=== PATIENT | female | born 1970 | race Caucasian/White ===

== ENCOUNTER → 2017-02-10 | Outpatient (CLI) | payer BC ==
[2017-02-10 17:18] LABS: CH 26.3; CHCM 31.5; HCT 43.9 % (34.0-46.0); HDW 2.61; HGB 13.5 gm/dL (11.4-16.0); Hypochromasia Slight; MCH 25.8 pg (25.0-35.0); MCHC 30.7 g/dL (31.0-37.0); MCV 83.9 fL (80.0-100.0); Mean Platelet Volume 8.2; RBC 5.23 m/uL (3.80-5.40); RDW 15.5 % (11.5-15.5); WBC 6.4 k/uL (3.8-10.6)
== END | disposition home or self-care (01) ==
LOC: LABPAT 16:53
PROVIDERS: ATTEND Otolaryngology
DX: Z01.812 Encounter for preprocedural laboratory examination (principal)
CPT/HCPCS: 36415; 85027

== ENCOUNTER 2017-11-16 14:55 | Inpatient (IN) | payer BC, MEDICARE ==
[2017-11-16] MEDS ORDERED: MORPHINE SULFATE 4 MG/ML SYRINGE IVP STA (15:08)
[2017-11-16] MEDS ORDERED: SODIUM CHLORIDE 0.9% 1,000 ML IV STA (15:08)
[2017-11-16] MEDS ORDERED: LORazepam 2 MG/ML INJ IV STA (15:08)
[2017-11-16] MEDS ORDERED: MORPHINE SULFATE 4 MG/ML SYRINGE IVP PRN (15:08)
--- NOTE | 2017-11-16 15:49 | ED ---
General Adult HPI - General Chief complaint: Seizure Stated complaint: Seizure Time Seen by Provider: 11/16/17 14:57 Source: patient, RN notes reviewed, old records reviewed Mode of arrival: wheelchair Limitations: no limitations - History of Present Illness Initial comments: This is a 47-year-old female coming in for voluntary shaking. Patient recently had ENT procedure the right side of neck prior to arrival. Patient's denies any pain no headaches. She does states she is uncontrollable tremors which started in the postop area. No recent travel history or sick contacts no fevers no medication changes - Related Data Home Medications Medication Instructions Recorded Confirmed Glimepiride [Amaryl] 4 mg PO QAM 02/10/17 11/16/17 Ibuprofen 800 mg PO TID-W/MEALS PRN 02/10/17 11/16/17 Levalbuterol Hfa Inhaler [Xopenex 2 puff INHALATION RT-QID PRN 02/10/17 11/16/17 Hfa Inhaler] Montelukast [Singulair] 10 mg PO HS 02/10/17 11/16/17 Pravastatin Sodium [Pravachol] 40 mg PO HS 02/10/17 11/16/17 Ranitidine HCl [Zantac] 150 mg PO BID 02/10/17 11/16/17 Ascorbic Acid [Vitamin C] 1,000 mg PO DAILY 11/12/17 11/16/17 Dapagliflozin Propanediol [Farxiga] 10 mg PO QAM 11/12/17 11/16/17 Gabapentin 1,200 mg PO HS 11/12/17 11/16/17 Gabapentin 600 mg PO QAM 11/12/17 11/16/17 Gabapentin [Neurontin] 300 mg PO PC-LUNCH 11/12/17 11/16/17 Insulin NPH Human Isophane 15 unit SQ AC-SUPPER 11/12/17 11/16/17 [humuLIN N] traZODone HCL [Desyrel] 100 mg PO HS 11/12/17 11/16/17 Acetaminophen with Codeine 1 tab PO TID PRN 11/16/17 11/16/17 [Tylenol w/codeine #3] DULoxetine HCL [Cymbalta] 40 mg PO DAILY 11/16/17 11/16/17 Ezetimibe [Zetia] 10 mg PO DAILY 11/16/17 11/16/17 Loratadine [Claritin] 10 mg PO DAILY 11/16/17 11/16/17 NIFEdipine [Procardia XL] 30 mg PO DAILY 11/16/17 11/16/17 Nystatin/Triamcin 1 applicate TOPICAL TID 11/16/17 11/16/17 [Nystatin-Triamcinolone Cream] Pioglitazone HCl 30 mg PO DAILY 11/16/17 11/16/17 Zinc 25 25 mg PO DAILY 11/16/17 11/16/17 metFORMIN HCL [metFORMIN HCL ER] 1,000 mg PO BID-W/MEALS 11/16/17 11/16/17 Previous Rx's Medication Instructions Recorded Magnesium Oxide 400 mg PO BID #0 11/18/17 levETIRAcetam [Keppra] 1,000 mg PO Q12HR #60 tab 11/18/17 Calcitriol [Rocaltrol] 0.5 mcg PO DAILY #30 cap 11/19/17 Allergies Allergy/AdvReac Type Severity Reaction Status Date / Time atropine [From ] Allergy Rash/Hives Verified 11/16/17 16:55 erythromycin base Allergy Nausea Verified 11/16/17 16:55 [From E-Mycin] hyoscyamine [From ] Allergy Rash/Hives Verified 11/16/17 16:55 Influenza Virus Vaccines Allergy Unknown Verified 11/16/17 16:55 Penicillins Allergy Rash/Hives Verified 11/16/17 16:55 phenobarbital [From ] Allergy Rash/Hives Verified 11/16/17 16:55 pneumococcal vaccine Allergy Unknown Verified 11/16/17 16:55 scopolamine [From ] Allergy Rash/Hives Verified 11/16/17 16:55 strawberry Allergy Anaphylaxis Verified 11/18/17 13:08 tetanus and diphtheria Allergy Unknown Verified 11/16/17 16:55 toxoids Review of Systems ROS Statement: Those systems with pertinent positive or pertinent negative responses have been documented in the HPI. ROS Other: All systems not noted in ROS Statement are negative. 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 BEING WORKED UP FOR POSSIBLE SEIZURES, LAST ONE WAS 11/08/17 , TREMORS LASTING 3-5 MINUTES History of Any Multi-Drug Resistant Organisms: None Reported Past Surgical History: Section, Orthopedic Surgery Additional Past Surgical History / Comment(s): 5 surgeries on left elbow. POST AURICULAR BENIGN MASS x 2 Past Anesthesia/Blood Transfusion Reactions: Postoperative Nausea & Vomiting ( PONV) Past Psychological History: No Psychological Hx Reported Smoking Status: Never smoker Past Alcohol Use History: None Reported Past Drug Use History: None Reported - Past Family History Mother Family Medical History: Cancer Sister(s) Family Medical History: Cancer General Exam Limitations: no limitations General appearance: alert, in no apparent distress Head exam: Present: atraumatic, normocephalic, normal inspection Eye exam: Present: normal appearance, PERRL, EOMI. Absent: scleral icterus, conjunctival injection, periorbital swelling ENT exam: Present: normal exam, mucous membranes moist Neck exam: Present: normal inspection. Absent: tenderness, meningismus, lymphadenopathy Respiratory exam: Present: normal lung sounds bilaterally. Absent: respiratory distress, wheezes, rales, rhonchi, stridor Cardiovascular Exam: Present: regular rate, normal rhythm, normal heart sounds. Absent: systolic murmur, diastolic murmur, rubs, gallop, clicks GI/Abdominal exam: Present: soft, normal bowel sounds. Absent: distended, tenderness, guarding, rebound, rigid Extremities exam: Present: normal inspection, full ROM, normal capillary refill. Absent: tenderness, pedal edema, joint swelling, calf tenderness Back exam: Present: normal inspection Neurological exam: Present: alert, oriented X3, CN II-XII intact Psychiatric exam: Present: normal affect, normal mood Skin exam: Present: warm, dry, intact, normal color. Absent: rash Course Vital Signs 11/16/17 11/16/17 11/16/17 14:58 16:36 17:13 Temperature 98.1 F 97.0 F L 98.1 F Pulse Rate 97 96 Pulse Rate [ 85 Pulse Oximetery ] Respiratory 18 17 18 Rate Blood Pressure 113/57 116/64 Blood Pressure 120/66 [Supine] O2 Sat by Pulse 97 95 98 Oximetry 11/16/17 11/16/17 18:00 19:00 Temperature 98.1 F 97.8 F Pulse Rate 75 90 Pulse Rate [ Pulse Oximetery ] Respiratory 95 H 19 Rate Blood Pressure 155/74 121/68 Blood Pressure [Supine] O2 Sat by Pulse 98 98 Oximetry EKG Findings - EKG Comments: EKG Findings:: EKG shows normal sinus rhythm rate of 96, OK 166, QRS 84, QTC 490 Medical Decision Making - Medical Decision Making 47 female the ER for evaluation patient presents ER for evaluation of postop period which she began to have seizure-like activity. Patient has hypocalcemia tetany, will not for electronically replacement - Lab Data Result diagrams: 11/17/17 06:11 11/19/17 07:42 Lab Results 11/16/17 11/16/17 11/16/17 Range/Units 15:40 15:40 15:40 WBC 4.3 (3.8-10.6) k/uL RBC 3.41 L (3.80-5.40) m/uL Hgb 9.2 L (11.4-16.0) gm/dL Hct 28.2 L (34.0-46.0) % MCV 82.7 (80.0-100.0) fL MCH 26.8 (25.0-35.0) pg MCHC 32.5 (31.0-37.0) g/dL RDW 13.9 (11.5-15.5) % Plt Count 179 (150-450) k/uL Neutrophils % 81 % Lymphocytes % 14 % Monocytes % 2 % Eosinophils % 2 % Basophils % 0 % Neutrophils # 3.5 (1.3-7.7) k/uL Lymphocytes # 0.6 L (1.0-4.8) k/uL Monocytes # 0.1 (0-1.0) k/uL Eosinophils # 0.1 (0-0.7) k/uL Basophils # 0.0 (0-0.2) k/uL Sodium 144 (137-145) mmol/L Potassium 2.2 L* (3.5-5.1) mmol/L Chloride 126 H (98-107) mmol/L Carbon Dioxide 14 L (22-30) mmol/L Anion Gap 4 mmol/L BUN 16 (7-17) mg/dL Creatinine 0.35 L (0.52-1.04) mg/dL Est GFR (CKD-EPI)AfAm >90 (>60 ml/min/1.73 sqM) Est GFR (CKD-EPI)NonAf >90 (>60 ml/min/1.73 sqM) Glucose 123 H (74-99) mg/dL Calcium 4.7 L* (8.4-10.2) mg/dL Phosphorus 2.1 L (2.5-4.5) mg/dL Magnesium 0.8 L* (1.6-2.3) mg/dL Total Bilirubin 0.1 L (0.2-1.3) mg/dL AST 17 (14-36) U/L ALT 29 (9-52) U/L Alkaline Phosphatase 31 L (38-126) U/L Total Protein 3.4 L (6.3-8.2) g/dL Albumin 1.6 L (3.5-5.0) g/dL Salicylates <1.0 mg/dL Acetaminophen <10.0 ug/mL - Radiology Data Radiology results: report reviewed (CT brain negative for acute disease), image reviewed Critical Care Time Critical Care Time: Yes Total Critical Care Time: 31 Disposition Clinical Impression: Hypocalcemia, Tetany, Hypokalemia Disposition: ADMITTED IP TO THIS [facility] Condition: Good Is patient prescribed a controlled substance at d/c from ED?: No
[2017-11-16 16:00] LABS: Basophils % (A) 0 %; Eosinophils # (A) 0.1 k/uL (0-0.7); Eosinophils % (A) 2 %; HCT 28.2 % (34.0-46.0); HGB 9.2 gm/dL (11.4-16.0); Lymphocytes # (A) 0.6 k/uL (1.0-4.8); Lymphocytes % (A) 14 %; MCH 26.8 pg (25.0-35.0); MCHC 32.5 g/dL (31.0-37.0); MCV 82.7 fL (80.0-100.0); Mean Platelet Volume 8.5; Monocytes # (A) 0.1 k/uL (0-1.0); Monocytes % (A) 2 %; Neutrophils # (A) 3.5 k/uL (1.3-7.7); Neutrophils % (A) 81 %; Platelet Count 179 k/uL (150-450); RBC 3.41 m/uL (3.80-5.40); RDW 13.9 % (11.5-15.5); WBC 4.3 k/uL (3.8-10.6)
[2017-11-16 16:09] LABS: ALT 29 U/L (9-52); AST 17 U/L (14-36); Acetaminophen <10.0 ug/mL; Albumin 1.6 g/dL (3.5-5.0); Alkaline Phosphatase 31 U/L (38-126); Anion Gap 4 mmol/L; Blood Urea Nitrogen 16 mg/dL (7-17); Carbon Dioxide 14 mmol/L (22-30); Chloride 126 mmol/L (98-107); Glucose 123 mg/dL (74-99); Salicylate <1.0 mg/dL; Sodium 144 mmol/L (137-145); Total Bilirubin 0.1 mg/dL (0.2-1.3); Total Protein 3.4 g/dL (6.3-8.2)
--- NOTE | 2017-11-16 16:11 | CT ---
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 Automated Exposure Control for Dose Reduction was Utilized. TECHNIQUE: CT scan of the head is performed without contrast. FINDINGS: There is no acute intracranial hemorrhage, mass effect, or midline shift identified. The ventricles and sulci are within normal limits in size. Calcified or ossified density along the inner table of the right temporal bone and left frontal bone suggestive of a calcified meningioma or osteo ma. Periventricular low attenuation is nonspecific. IMPRESSION: 1. No acute intracranial hemorrhage, mass effect, or midline shift is seen. 2. There are 2 nonspecific periventricular low attenuation likely in the basis of remote microvascula r ischemia. 3. Calcified or ossified densities involving the inner table of the left frontal and right temporal b ones may represent osteoma or calcified meningioma. No midline shift.
[2017-11-16 16:16] LABS: Calcium 4.7 mg/dL (8.4-10.2); Potassium 2.2 mmol/L (3.5-5.1)
[2017-11-16] MEDS ORDERED: CALCIUM GLUCONATE 1,000 MG in SODIUM CHLORIDE 0.9% 100 ML IVPB ONE (16:16)
[2017-11-16] MEDS ORDERED: POTASSIUM BICARBONATE/CIT AC 20 MEQ TABLET.EFF PO ONE (16:17)
[2017-11-16 17:16] LABS: Phosphorus 2.1 mg/dL (2.5-4.5)
[2017-11-16 17:25] LABS: Magnesium 0.8 mg/dL (1.6-2.3)
[2017-11-16] MEDS: POTASSIUM CHLORIDE 20 MEQ in WATER FOR INJECTION 1 100ML.BAG IVPB SCH ×2 (18:13→21:13)
[2017-11-16 20:28] VITALS: BMI 38.5
[2017-11-16 20:43] LABS: Glucose,Whole Blood 149 mg/dL (75-99)
[2017-11-16] MEDS ORDERED: ACET/COD 300 MG/30 MG STARTER PACK 6 TAB BTL PO PRN (21:00)
[2017-11-16] MEDS: GABAPENTIN 400 MG CAP PO SCH (22:24)
[2017-11-16] MEDS: PRAVASTATIN SODIUM 40 MG TAB PO SCH (22:25)
[2017-11-16] MEDS: DOXYCYCLINE 100 MG CAP PO SCH (22:25)
[2017-11-16] MEDS: traZODone HCL 100 MG TAB PO SCH (22:25)
[2017-11-16] MEDS: Acetaminophen-Codeine 300-30mg TAB PO PRN (22:25)
[2017-11-16 23:28] LABS: Appearance,Urine Clear (Clear); Bacteria,Urine Rare /hpf; Bilirubin,Urine Negative (Negative); Blood,Urine Negative (Negative); Color,Urine Light Yellow; Glucose,Urine (UA) 4+ (Negative); Ketones,Urine Trace (Negative); Leukocyte Esterase,Urine Moderate (Negative); Mucus,Urine Rare /hpf; Nitrite,Urine Negative (Negative); Protein,Urine Negative (Negative); RBC,Urine 1 /hpf (0-5); Specific Gravity,Urine 1.016 (1.001-1.035); Squamous Epithelial Cell,Urine 4 /hpf (0-4); Urobilinogen,Urine <2.0 mg/dL (<2.0)
[2017-11-17 00:20] LABS: Amphetamine Screen,Urine Not Detected (NotDetected); Barbiturate Screen,Urine Not Detected (NotDetected); Benzodiazepines Screen,Urine Detected (NotDetected); Cocaine Screen,Urine Not Detected (NotDetected); Methadone Screen, Urine Not Detected (NotDetected); Opiate Screen,Urine Detected (NotDetected); Oxycodone Screen, Urine Not Detected (NotDetected); Phencyclidine Screen,Urine Not Detected (NotDetected); Tricyclic Antidepressant,Urine Not Detected (NotDetected); Urn Cannabinoid Scrn Not Detected (NotDetected)
[2017-11-17] MEDS: MAGNESIUM SULFATE-D5W PMX 1 GM in DEXTROSE/WATER 1 100ML.BAG IVPB SCH ×4 (00:31→03:32)
[2017-11-17 02:16] LABS: Anion Gap 8 mmol/L; Blood Urea Nitrogen 21 mg/dL (7-17); Carbon Dioxide 22 mmol/L (22-30); Chloride 108 mmol/L (98-107); Creatine Kinase 101 U/L (30-135); Glucose 178 mg/dL (74-99); Potassium 4.3 mmol/L (3.5-5.1); Sodium 138 mmol/L (137-145)
[2017-11-17] MEDS: LORazepam 2 MG/ML INJ IV PRN ×2 (04:40→15:14)
[2017-11-17 06:18] LABS: Glucose,Whole Blood 160 mg/dL (75-99)
[2017-11-17] MEDS: metFORMIN 500 MG TAB PO SCH ×2 (06:43→16:59)
[2017-11-17 07:20] LABS: Basophils % (A) 1 %; Eosinophils # (A) 0.2 k/uL (0-0.7); Eosinophils % (A) 2 %; HCT 39.6 % (34.0-46.0); Lymphocytes # (A) 2.2 k/uL (1.0-4.8); Lymphocytes % (A) 27 %; MCH 27.2 pg (25.0-35.0); MCHC 32.9 g/dL (31.0-37.0); MCV 82.7 fL (80.0-100.0); Mean Platelet Volume 8.1; Monocytes # (A) 0.5 k/uL (0-1.0); Monocytes % (A) 7 %; Neutrophils # (A) 5.1 k/uL (1.3-7.7); Neutrophils % (A) 62 %; Platelet Count 268 k/uL (150-450); RBC 4.79 m/uL (3.80-5.40); WBC 8.2 k/uL (3.8-10.6)
[2017-11-17 07:23] LABS: Anion Gap 8 mmol/L; Blood Urea Nitrogen 19 mg/dL (7-17); Calcium 8.4 mg/dL (8.4-10.2); Carbon Dioxide 24 mmol/L (22-30); Chloride 109 mmol/L (98-107); Glucose 165 mg/dL (74-99); Magnesium 2.8 mg/dL (1.6-2.3); Potassium 4.1 mmol/L (3.5-5.1); Sodium 141 mmol/L (137-145)
[2017-11-17] MEDS: ALBUTEROL NEBULIZED 2.5 MG/3 ML INHALATION PRN ×5 (07:54→20:50)
[2017-11-17] MEDS: FARXIGA 10 MG PO SCH (08:33)
[2017-11-17] MEDS: MAGNESIUM OXIDE 400 MG TAB PO SCH ×2 (08:49→20:21)
[2017-11-17] MEDS: PIOGLITAZONE 30 MG TAB PO SCH (11:05)
[2017-11-17] MEDS: CALCITRIOL 0.25 MCG CAP PO SCH (11:06)
[2017-11-17] MEDS: DOXYCYCLINE 100 MG CAP PO SCH ×2 (11:06→20:20)
[2017-11-17] MEDS: EZETIMIBE 10 MG TAB PO SCH (11:06)
[2017-11-17] MEDS: NIFEdipine XL 30 MG TAB.ER.24 PO SCH (11:07)
[2017-11-17] MEDS: GABAPENTIN 300 MG CAP PO SCH ×2 (11:07→15:20)
[2017-11-17] MEDS: DULoxetine HCL 20 MG CAPSULE.DR PO SCH (11:08)
[2017-11-17] MEDS: Acetaminophen-Codeine 300-30mg TAB PO PRN (11:09)
[2017-11-17] MEDS: GLIMEPIRIDE 4 MG TAB PO SCH (11:09)
[2017-11-17] MEDS: ENOXAPARIN 40 MG/0.4 ML SYRINGE SQ SCH (11:36)
[2017-11-17 11:56] LABS: Glucose,Whole Blood 157 mg/dL (75-99)
[2017-11-17] MEDS: INSULIN ASPART 100 UNIT/ML 1 ML 10 ML VIAL SQ SCH ×3 (13:19→23:26)
[2017-11-17] MEDS ORDERED: levETIRAcetam IV 500 MG in SODIUM CHLORIDE 0.9% 100 ML IVPB STA (15:12)
--- NOTE | 2017-11-17 15:26 | MR ---
EXAMINATION TYPE: MR brain wo/w con DATE OF EXAM: 11/17/2017 COMPARISON: CT brain from yesterday. MRI brain from January 30, 2017 HISTORY: seizure activity. TECHNIQUE: Multiplanar, multisequence images of the brain and brainstem is performed without and with IV contras t, utilizing 9 mL intravenous Gadavist . FINDINGS: Diffusion weighted images demonstrate no evidence of a recent infarct or other diffusion ab normality. There is no extra-axial fluid collection or significant white matter signal abnormality. The ventricular system and cisternal spaces are normal in size and appearance. The brain volume is age appropriate. There is stable osteoma or ossified meningioma left frontal region on axial image 22 measuring 1.5 x 0.8 cm Midline structures demonstrate normal morphology. The craniocervical junction appears within normal limits. Post contrast images demonstrate no abnormal enhancement. The dural venous sinuses appear pa tent. The visualized sinuses are clear and the globes are intact. IMPRESSION: No significant new or acute finding identified on current study.
--- NOTE | 2017-11-17 15:27 | EEG ---
ELECTROENCEPHALOGRAM REPORT DATE OF SERVICE: 11/17/2017 REASON FOR TESTING: Seizures. CURRENT ANTIEPILEPTIC MEDICATIONS: Keppra and Neurontin. DESCRIPTION OF THE PROCEDURE: This EEG was performed using a 21 channel digital electroencephalograph, following international 10-20 system. DESCRIPTION OF THE RECORDING: From the beginning of the tracing, and with the patient's eyes closed, the background rhythm was mostly consisting of 8-9 Hz alpha frequency in the posterior occipital leads. No obvious asymmetry is seen. Occasional muscle and movement artifacts are noticed. Rare sharp wave activity is seen. During this tracing, the patient did have a clinical episode of jerking activity according to the painting technician. During that spell, no epileptic discharges were seen. Photic stimulation was performed with significant muscle artifacts seen during stimulation. At 16 hertz and 18 hertz of photic stimulation, spike and slow wave activity is seen, consistent with epileptiform discharges. The patient remains awake throughout the tracing. Her EKG lead showed a regular rate and rhythm. INTERPRETATION: This awake EEG is abnormal due to the presence of generalized epileptiform discharges, mostly seen during photic stimulation. This is consistent with seizures. Clinical correlation is recommended. MMODL / IJN: [id number] /
--- NOTE | 2017-11-17 15:33 | P.HPIM ---
History of Present Illness H&P Date: 11/17/17 Chief Complaint: tonic clonic contraction extremities This is a pleasant 47 year old pleasant lady patient of Dr correa with DM2 FMS Ehler Danlos syndrome admitted from the ER after she was noted to have tonic clonic contaction of upper and lower extremities at the recovery room with 2 episodes of toniccolonic contractions of upper extremity and lower extremity accompanied unresponsiveness, lasting approximately 6-10 minutes, patient was subsequently seen in the emergency room to evaluate this further, She has previous similar episodes for which Dr Tucker neurology has seen her as states its pseudoseizures, She saw a psychiatrist stating this is not stress induced pseudoseizures. She is scheduled to [facility] for eval no appontmentscheduled yet Emergency room severe hypocalcemia with calcium levels of 4.7,magnesium is extremely low0.8, PTH of 45.8glucose of 178all were aggressively replaced, patient has one tonic-clonic contraction of the upper extremity which was noted in the medical floor selective unit, consult were made with neurology, tetany is under the differential. She has blood workat [facility] which shows normal PTH level, calcium level at that time was 10.9. There is no new medication changes from PCP, in fact-up 5 was discontinued, and duloxetine was decreased from 60 mg to 30 mg twice a day. Patient denies any fever or chills abdominal pain, she does have abdominal pain secondary to the positioning from her seroma surgery, Dr. Boogie has performed a 3 cm neuroma removal on 2017 prior to her ER transfer. Basco were discontinued today by Dr. Boogie , MRI of the brain to be done Review of Systems Constitutional: Reports as per HPI, Denies anorexia, Denies chills, Denies chronic headaches, Denies chronic pain, Denies daytime sleepiness, Denies fatigue, Denies fever, Denies lethargy, Denies malaise, Denies night sweats, Denies poor appetite, Denies sweats, Denies weakness, Denies weight gain, Denies weight loss Ears, nose, mouth and throat: Reports as per HPI Cardiovascular: Reports as per HPI, Denies chest pain, Denies claudication, Denies decreased exercise tolerance, Denies dyspnea on exertion, Denies edema, Denies high blood pressure, Denies irregular heart beat, Denies leg edema, Denies lightheadedness, Denies orthopnea, Denies palpitations, Denies paroxysmal nocturnal dyspnea, Denies phlebitis, Denies rapid heart beat, Denies shortness of breath, Denies syncope Respiratory: Reports as per HPI Gastrointestinal: Reports as per HPI, Denies abdominal pain, Denies belching, Denies bloating, Denies BRBPR, Denies change in bowel habits, Denies coffee ground emesis, Denies constipation, Denies diarrhea, Denies dyspepsia, Denies early satiety, Denies excessive gas, Denies heartburn, Denies hematemesis, Denies hematochezia, Denies indigestion, Denies jaundice, Denies lactose intolerance, Denies loss of appetite, Denies melena, Denies nausea, Denies vomiting Genitourinary: Reports as per HPI, Denies abnormal vaginal bleeding, Denies decreased libido, Denies difficulty conceiving, Denies difficulty voiding, Denies dysmenorrhea, Denies dyspareunia, Denies dysuria, Denies flank pain, Denies genital sores, Denies hematuria, Denies hot flashes, Denies incomplete emptying, Denies kidney stones, Denies menorrhagia, Denies mixed incontinence, Denies nocturia, Denies pelvic pain, Denies post void dribbling, Denies , Denies prolapse symptoms, Denies stress incontinence, Denies urge incontinence , Denies urgency, Denies urinary frequency, Denies vaginal discharge, Denies vaginal dryness, Denies vaginal itching, Denies vaginal odor Menstruation: Reports as per HPI Musculoskeletal: Reports as per HPI, Denies arm numbness/tingling, Denies atrophy, Denies fractures, Denies frequent falls, Denies gait dysfunction, Denies hot joints, Denies leg numbness/tingling, Denies limitation of motion, Denies loss of height, Denies low back pain, Denies morning stiffness, Denies muscle cramps, Denies muscle weakness, Denies myalgias, Denies neck pain, Denies neck stiffness, Denies prior amputations, Denies redness of joints, Denies shooting arm pain, Denies shooting leg pain Integumentary: Reports as per HPI Neurological: Reports as per HPI, Reports convulsions, Reports syncope Psychiatric: Reports as per HPI Endocrine: Reports as per HPI, Denies cold intolerance, Denies deepening of the voice, Denies excessive sweating, Denies excessive thirst, Denies fatigue, Denies flushing, Denies heat intolerance, Denies high blood sugars, Denies increase in ring/shoe/hat size, Denies low blood sugars, Denies nocturia, Denies palpitations, Denies polydipsia, Denies polyphagia, Denies polyuria, Denies proptosis, Denies recent glucocorticoid use, Denies thyroid mass, Denies weight change Hematologic/Lymphatic: Reports as per HPI Allergic/Immunologic: Reports as per HPI Past Medical History Past Medical History: Asthma, Diabetes Mellitus, Fibromyalgia, Hyperlipidemia, Hypertension, Osteoarthritis (OA) Additional Past Medical History / Comment(s): Parisa-Danlos Syndrome, wears brace on left arm. BEING WORKED UP FOR POSSIBLE SEIZURES, LAST ONE WAS 11/08/17 , TREMORS LASTING 3-5 MINUTES History of Any Multi-Drug Resistant Organisms: None Reported Past Surgical History: Section, Orthopedic Surgery Additional Past Surgical History / Comment(s): 5 surgeries on left elbow. POST AURICULAR BENIGN MASS x 2 Past Anesthesia/Blood Transfusion Reactions: Postoperative Nausea & Vomiting ( PONV) Past Psychological History: No Psychological Hx Reported Smoking Status: Never smoker Past Alcohol Use History: None Reported Past Drug Use History: None Reported - Past Family History Mother Family Medical History: Cancer (small cell ca lung) Sister(s) Family Medical History: Cancer Medications and Allergies Home Medications Medication Instructions Recorded Confirmed Type Glimepiride [Amaryl] 4 mg PO QAM 02/10/17 11/16/17 History Ibuprofen 800 mg PO TID-W/MEALS PRN 02/10/17 11/16/17 History Levalbuterol Hfa Inhaler [Xopenex 2 puff INHALATION RT-QID PRN 02/10/17 History Hfa Inhaler] Montelukast [Singulair] 10 mg PO HS 02/10/17 11/16/17 History Pravastatin Sodium [Pravachol] 40 mg PO HS 02/10/17 11/16/17 History Ranitidine HCl [Zantac] 150 mg PO BID 02/10/17 11/16/17 History Ascorbic Acid [Vitamin C] 1,000 mg PO DAILY 11/12/17 11/16/17 History Dapagliflozin Propanediol [Farxiga] 10 mg PO QAM 11/12/17 11/16/17 History Gabapentin 1,200 mg PO HS 11/12/17 11/16/17 History Gabapentin 600 mg PO QAM 11/12/17 11/16/17 History Gabapentin [Neurontin] 300 mg PO PC-LUNCH 11/12/17 11/16/17 History Insulin NPH Human Isophane 15 unit SQ AC-SUPPER 11/12/17 11/16/17 History [humuLIN N] traZODone HCL [Desyrel] 100 mg PO HS 11/12/17 11/16/17 History Acetaminophen with Codeine 1 tab PO TID PRN 11/16/17 11/16/17 History [Tylenol w/codeine #3] DULoxetine HCL [Cymbalta] 40 mg PO DAILY 11/16/17 11/16/17 History Ezetimibe [Zetia] 10 mg PO DAILY 11/16/17 11/16/17 History Loratadine [Claritin] 10 mg PO DAILY 11/16/17 11/16/17 History NIFEdipine [Procardia XL] 30 mg PO DAILY 11/16/17 11/16/17 History Nystatin/Triamcin 1 applicate TOPICAL TID 11/16/17 11/16/17 History [Nystatin-Triamcinolone Cream] Pioglitazone HCl 30 mg PO DAILY 11/16/17 11/16/17 History Zinc 25 25 mg PO DAILY 11/16/17 11/16/17 History metFORMIN HCL [metFORMIN HCL ER] 1,000 mg PO BID-W/MEALS 11/16/17 11/16/17 History Magnesium Oxide 400 mg PO BID #0 11/18/17 11/16/17 Rx levETIRAcetam [Keppra] 1,000 mg PO Q12HR #60 tab 11/18/17 Rx Calcitriol [Rocaltrol] 0.5 mcg PO DAILY #30 cap 11/19/17 Rx Allergies Allergy/AdvReac Type Severity Reaction Status Date / Time atropine [From ] Allergy Rash/Hives Verified 11/16/17 16:55 erythromycin base Allergy Nausea Verified 11/16/17 16:55 [From E-Mycin] hyoscyamine [From ] Allergy Rash/Hives Verified 11/16/17 16:55 Influenza Virus Vaccines Allergy Unknown Verified 11/16/17 16:55 Penicillins Allergy Rash/Hives Verified 11/16/17 16:55 phenobarbital [From ] Allergy Rash/Hives Verified 11/16/17 16:55 pneumococcal vaccine Allergy Unknown Verified 11/16/17 16:55 scopolamine [From ] Allergy Rash/Hives Verified 11/16/17 16:55 strawberry Allergy Anaphylaxis Verified 11/18/17 13:08 tetanus and diphtheria Allergy Unknown Verified 11/16/17 16:55 toxoids Physical Exam Vitals: Vital Signs Temp Pulse Pulse Resp BP BP Pulse Ox 11/17/17 12:04 70 11/17/17 12:00 96.7 F L 93 18 120/59 97 11/17/17 11:31 95 18 11/17/17 09:00 97.0 F L 95 18 129/69 96 11/17/17 08:07 89 11/17/17 08:00 105 H 18 11/17/17 07:56 92 18 11/17/17 04:00 97.4 F L 108 H 16 138/70 96 11/17/17 00:35 93 19 133/76 95 11/17/17 00:00 97.5 F L 106 H 16 131/75 96 11/16/17 19:00 97.8 F 90 19 121/68 98 11/16/17 18:00 98.1 F 75 95 H 155/74 98 11/16/17 17:13 98.1 F 96 18 116/64 98 11/16/17 16:36 97.0 F L 85 17 120/66 95 11/16/17 14:58 98.1 F 97 18 113/57 97 Intake and Output 11/16/17 11/17/17 11/17/17 22:59 06:59 14:59 Intake Total 1590 200 Output Total 1100 Balance 490 200 Intake: IV 10 Invasive Line 1 10 Intake, IV Titration 1100 Amount Potassium Chloride 20 meq 100 In Water For Injection 1 100ml.bag @ 50 mls/hr IVPB Q2HR LIA Rx#: [id number] Sodium Chloride 0.9% 1, 1000 000 ml @ 999 mls/hr IV . Q1H1M STA Rx#:[id number] Oral 480 200 Output: Urine 1100 Other: Voiding Method Bedside Commode Bedside Commode # Voids 2 Weight 92.4 kg 92.4 kg - Constitutional General appearance: no average body habitus, cooperative, no disheveled, no mild distress, morbidly obese, no acute distress, no obese, no severe distress, no thin - EENT Eyes: no abnormal pupil, anicteric sclerae, no disc margins sharp, no edentulous , EOMI, PERRLA, no photophobia, dentition normal, no poor dentition, no ptosis, no scleral icterus, normal appearance ENT: NA/AT, normal oropharynx - Neck Neck: no lymphadenopathy, normal ROM, no other, no rigidity, no stridor, no thyromegaly - Respiratory Respiratory: bilateral: CTA, negative: diminished, dullness, rales, rhonchi, wheezing - Gastrointestinal General gastrointestinal: no absent bowel sounds, no decreased bowel sounds, no distended, no hepatomegaly, hyperactive bowel sounds, no normal bowel sounds, no organomegaly, no rigid, scaphoid, no soft, no splenomegaly, no tenderness, no umbilical hernia, no ventral hernia - Integumentary Integumentary: no calor, no cellulitis, no cyanotic, decreased turgor, no flushed, no jaundiced, normal, no normal turgor, no pale, no rash, no ulcer - Neurologic negative brudzinski and kernig's sign - Musculoskeletal Musculoskeletal: gait normal, strength equal bilaterally - Psychiatric no motory paralysis no drift no myoclonus Psychiatric: A&O x's 3, appropriate affect, intact judgment & insight Results CBC & Chem 7: 11/17/17 06:11 11/20/17 06:55 Labs: Abnormal Lab Results - Last 24 Hours (Table) 11/16/17 11/16/17 11/16/17 Range/Units 15:40 15:40 15:40 RBC 3.41 L (3.80-5.40) m/uL Hgb 9.2 L (11.4-16.0) gm/dL Hct 28.2 L (34.0-46.0) % Lymphocytes # 0.6 L (1.0-4.8) k/uL Potassium 2.2 L* (3.5-5.1) mmol/L Chloride 126 H (98-107) mmol/L Carbon Dioxide 14 L (22-30) mmol/L BUN (7-17) mg/dL Creatinine 0.35 L (0.52-1.04) mg/dL Glucose 123 H (74-99) mg/dL POC Glucose (mg/dL) (75-99) mg/dL Calcium 4.7 L* (8.4-10.2) mg/dL Phosphorus 2.1 L (2.5-4.5) mg/dL Magnesium 0.8 L* (1.6-2.3) mg/dL Total Bilirubin 0.1 L (0.2-1.3) mg/dL Alkaline Phosphatase 31 L (38-126) U/L Total Protein 3.4 L (6.3-8.2) g/dL Albumin 1.6 L (3.5-5.0) g/dL Urine Glucose (UA) (Negative) Urine Ketones (Negative) Ur Leukocyte Esterase (Negative) Urine Bacteria (None) /hpf Urine Mucus (None) /hpf Urine Opiates Screen (NotDetected) U Benzodiazepines Scrn (NotDetected) 11/16/17 11/16/17 11/17/17 Range/Units 20:41 21:15 01:21 RBC (3.80-5.40) m/uL Hgb (11.4-16.0) gm/dL Hct (34.0-46.0) % Lymphocytes # (1.0-4.8) k/uL Potassium (3.5-5.1) mmol/L Chloride 108 H (98-107) mmol/L Carbon Dioxide (22-30) mmol/L BUN 21 H (7-17) mg/dL Creatinine (0.52-1.04) mg/dL Glucose 178 H (74-99) mg/dL POC Glucose (mg/dL) 149 H (75-99) mg/dL Calcium (8.4-10.2) mg/dL Phosphorus (2.5-4.5) mg/dL Magnesium (1.6-2.3) mg/dL Total Bilirubin (0.2-1.3) mg/dL Alkaline Phosphatase (38-126) U/L Total Protein (6.3-8.2) g/dL Albumin (3.5-5.0) g/dL Urine Glucose (UA) 4+ H (Negative) Urine Ketones Trace H (Negative) Ur Leukocyte Esterase Moderate H (Negative) Urine Bacteria Rare H (None) /hpf Urine Mucus Rare H (None) /hpf Urine Opiates Screen Detected H (NotDetected) U Benzodiazepines Scrn Detected H (NotDetected) 11/17/17 11/17/17 11/17/17 Range/Units 06:11 06:17 11:50 RBC (3.80-5.40) m/uL Hgb (11.4-16.0) gm/dL Hct (34.0-46.0) % Lymphocytes # (1.0-4.8) k/uL Potassium (3.5-5.1) mmol/L Chloride 109 H (98-107) mmol/L Carbon Dioxide (22-30) mmol/L BUN 19 H (7-17) mg/dL Creatinine (0.52-1.04) mg/dL Glucose 165 H (74-99) mg/dL POC Glucose (mg/dL) 160 H 157 H (75-99) mg/dL Calcium (8.4-10.2) mg/dL Phosphorus (2.5-4.5) mg/dL Magnesium 2.8 H (1.6-2.3) mg/dL Total Bilirubin (0.2-1.3) mg/dL Alkaline Phosphatase (38-126) U/L Total Protein (6.3-8.2) g/dL Albumin (3.5-5.0) g/dL Urine Glucose (UA) (Negative) Urine Ketones (Negative) Ur Leukocyte Esterase (Negative) Urine Bacteria (None) /hpf Urine Mucus (None) /hpf Urine Opiates Screen (NotDetected) U Benzodiazepines Scrn (NotDetected) Laboratory Results WBC 8.2 k/uL (3.8-10.6) 11/17/17 06:11 RBC 4.79 m/uL (3.80-5.40) 11/17/17 06:11 Hgb 13.0 gm/dL (11.4-16.0) D 11/17/17 06:11 Hct 39.6 % (34.0-46.0) 11/17/17 06:11 MCV 82.7 fL (80.0-100.0) 11/17/17 06:11 MCH 27.2 pg (25.0-35.0) 11/17/17 06:11 MCHC 32.9 g/dL (31.0-37.0) 11/17/17 06:11 RDW 14.0 % (11.5-15.5) 11/17/17 06:11 Plt Count 268 k/uL (150-450) 11/17/17 06:11 Neutrophils % 62 % 11/17/17 06:11 Lymphocytes % 27 % 11/17/17 06:11 Monocytes % 7 % 11/17/17 06:11 Eosinophils % 2 % 11/17/17 06:11 Basophils % 1 % 11/17/17 06:11 Neutrophils # 5.1 k/uL (1.3-7.7) 11/17/17 06:11 Lymphocytes # 2.2 k/uL (1.0-4.8) 11/17/17 06:11 Monocytes # 0.5 k/uL (0-1.0) 11/17/17 06:11 Eosinophils # 0.2 k/uL (0-0.7) 11/17/17 06:11 Basophils # 0.0 k/uL (0-0.2) 11/17/17 06:11 Sodium 141 mmol/L (137-145) 11/17/17 06:11 Potassium 4.1 mmol/L (3.5-5.1) 11/17/17 06:11 Chloride 109 mmol/L (98-107) H 11/17/17 06:11 Carbon Dioxide 24 mmol/L (22-30) 11/17/17 06:11 Anion Gap 8 mmol/L 11/17/17 06:11 BUN 19 mg/dL (7-17) H 11/17/17 06:11 Creatinine 0.64 mg/dL (0.52-1.04) 11/17/17 06:11 Est GFR (CKD-EPI)AfAm >90 (>60 ml/min/1.73 sqM) 11/17/17 06:11 Est GFR (CKD-EPI)NonAf >90 (>60 ml/min/1.73 sqM) 11/17/17 06:11 Glucose 165 mg/dL (74-99) H 11/17/17 06:11 POC Glucose (mg/dL) 157 mg/dL (75-99) H 11/17/17 11:50 POC Glu Lathe Tender ID Yakelin Delarosa 11/17/17 11:50 Calcium 8.4 mg/dL (8.4-10.2) 11/17/17 06:11 Ionized Calcium Caren 5.0 mg/dL (4.5-5.3) 11/17/17 01:21 Phosphorus 2.1 mg/dL (2.5-4.5) L 11/16/17 15:40 Magnesium 2.8 mg/dL (1.6-2.3) H 11/17/17 06:11 Total Bilirubin 0.1 mg/dL (0.2-1.3) L 11/16/17 15:40 AST 17 U/L (14-36) 11/16/17 15:40 ALT 29 U/L (9-52) 11/16/17 15:40 Alkaline Phosphatase 31 U/L (38-126) L 11/16/17 15:40 Creatine Kinase 101 U/L (30-135) 11/17/17 01:21 Total Protein 3.4 g/dL (6.3-8.2) L 11/16/17 15:40 Albumin 1.6 g/dL (3.5-5.0) L 11/16/17 15:40 TSH 0.707 mIU/L (0.465-4.680) 11/17/17 06:11 Prolactin 3.7 ng/mL (2.8-29.2) 11/17/17 01:21 PTH Intact 45.8 pg/mL (14.0-72.0) 11/17/17 01:21 Urine Color Light Yellow 11/16/17 21:15 Urine Appearance Clear (Clear) 11/16/17 21:15 Urine pH 8.0 (5.0-8.0) 11/16/17 21:15 Ur Specific [place] 1.016 (1.001-1.035) 11/16/17 21:15 Urine Protein Negative (Negative) 11/16/17 21:15 Urine Glucose (UA) 4+ (Negative) H 11/16/17 21:15 Urine Ketones Trace (Negative) H 11/16/17 21:15 Urine Blood Negative (Negative) 11/16/17 21:15 Urine Nitrite Negative (Negative) 11/16/17 21:15 Urine Bilirubin Negative (Negative) 11/16/17 21:15 Urine Urobilinogen <2.0 mg/dL (<2.0) 11/16/17 21:15 Ur Leukocyte Esterase Moderate (Negative) H 11/16/17 21:15 Urine RBC 1 /hpf (0-5) 11/16/17 21:15 Ur Squamous Epith Cells 4 /hpf (0-4) 11/16/17 21:15 Urine Bacteria Rare /hpf (None) H 11/16/17 21:15 Urine Mucus Rare /hpf (None) H 11/16/17 21:15 Salicylates <1.0 mg/dL 11/16/17 15:40 Urine Opiates Screen Detected (NotDetected) H 11/16/17 21:15 Ur Oxycodone Screen Not Detected (NotDetected) 11/16/17 21:15 Urine Methadone Screen Not Detected (NotDetected) 11/16/17 21:15 Ur Propoxyphene Screen Not Detected (NotDetected) 11/16/17 21:15 Acetaminophen <10.0 ug/mL 11/16/17 15:40 Ur Barbiturates Screen Not Detected (NotDetected) 11/16/17 21:15 U Tricyclic Antidepress Not Detected (NotDetected) 11/16/17 21:15 Ur Phencyclidine Scrn Not Detected (NotDetected) 11/16/17 21:15 Ur Amphetamines Screen Not Detected (NotDetected) 11/16/17 21:15 U Methamphetamines Scrn Not Detected (NotDetected) 11/16/17 21:15 U Benzodiazepines Scrn Detected (NotDetected) H 11/16/17 21:15 Urine Cocaine Screen Not Detected (NotDetected) 11/16/17 21:15 U Marijuana (THC) Screen Not Detected (NotDetected) 11/16/17 21:15 Thrombosis Risk Factor Assmnt - DVT/VTE Prophylaxis DVT/VTE Prophylaxis: Mechanical Prophylaxis ordered - Choose All That Apply Any of the Below Risk Factors Present?: Yes Each Factor Represents 1 point: Age 41-60 years, Obesity (BMI >25) Other Risk Factors: No Other congenital or acquired thrombophilia - If yes, enter type in comment: No Thrombosis Risk Factor Assessment Total Risk Factor Score: 2 Thrombosis Risk Factor Assessment Level: Low Risk Assessment and Plan Plan: 1. Tonic-clonic contractions, suspected pseudoseizures, possibly from severe hypo-calciumia and hypomagnesemia.ruled out primary hypoparathyroidism. it is currently replaced, EKG fails to reveal any QT prolongation or any abnormalities except for possibility of lateral infarct, and inferior infarct.she was seen by Dr. Tucker in the past, pseudoseizures are considered, patient also was evaluated by psychiatry which was negative for any stress- induced pseudoseizures, however she has an appointment at [facility] Dr delores Posey, forthcoming appointment not scheduled. neurology is to see the patient, patient currently is on Keppra, she would need endocrinology evaluation post discharge from the hospital, etiology of the hypokalemia and hypomagnesemia is not determined as the patient is not on any any restricted diet.her labs 2-3 weeks ago for calcium and PTH level were acceptable, she does have a 10.9 calcium 3 weeks ago.continue on magnesium oxide 400 twice a day status post 2 g replacement 3 doses IV, start on Rocaltrol 0.5 mcgdaily. Discontinue vitamin D3 supplementation. Electrolytes to be monitored daily. seizure prophylaxis. 2 diabetes mellitus type 2on glimepiridemetformin NPH 15 units every dinner 3 Fibromyalgia with chronic pain on gabapentin, duloxetine 40 mg daily a day, 4 Hyperlipidemiaon Zetia 5 status post neuroma excision right side of the scalp, status post staple removal for an MRI imaging studies, surgical wound has been glued surgery performed 11/16/2017on prophylaxis doxycycline per recommendation 6. severe hypocalcemia , poss acute periodic hypocalcemi, no ongoing losses. ruled out primary hypoparathyroidism, replacment made for aggressive scorrection secondary to neurologic consequence of severe hypo. 7. severe hypomagnesemia, etiology unknown, replacment placed IV series of 2. 8. dvt and gi prophlaxis .
[2017-11-17 16:49] LABS: Glucose,Whole Blood 164 mg/dL (75-99)
[2017-11-17] MEDS: INSULIN NPH 300 UNIT/3 ML VIAL SQ SCH (16:56)
[2017-11-17] MEDS: levETIRAcetam IV 1,000 MG in SALINE 1 100ML.BAG IVPB SCH (20:12)
[2017-11-17] MEDS: GABAPENTIN 400 MG CAP PO SCH (20:20)
[2017-11-17] MEDS: PRAVASTATIN SODIUM 40 MG TAB PO SCH (20:21)
[2017-11-17] MEDS: traZODone HCL 100 MG TAB PO SCH (20:21)
[2017-11-17 20:58] LABS: Glucose,Whole Blood 161 mg/dL (75-99)
[2017-11-17 21:44] LABS: Hemoglobin A1C 8.4 % (4.0-6.0)
--- NOTE | 2017-11-17 22:59 | CONS ---
CONSULTATION DATE OF CONSULTATION: 11/17/2017 CHIEF COMPLAINT: Seizures. HISTORY OF PRESENT ILLNESS: Mrs. Villanueva is a pleasant 47-year-old female who is being evaluated by the neurology service per the request of Dr. Moreno for seizures. The patient had outpatient surgery done by Dr. Apolinar Cifuentes yesterday. She did tolerate the surgery well, but while she was in recovery room she had a witnessed seizure which was described as a generalized tonic-colonic seizure lasting approximately 1 minute and followed by approximately 10 minutes of postictal drowsiness. The patient had a second seizure and she was then transferred to the emergency room, where she was then admitted for further workup and management. When I was consulted, I did start the patient on Keppra 750 mg b.i.d. An EEG was done and I reviewed the study, which did show epileptic activity during photic stimulation. I did increase her Keppra to 1000 mg b.i.d. At the time of my evaluation, the patient is sitting up in her bed and appears to be in no acute distress. She has not had any further seizure-like activity since her Keppra was increased. She informs me that she has had these episodes in the past. She started having seizure-like activity in April of this year and she states that she was seen by a local neurologist who told her that these are pseudoseizures and did not start any antiepileptic medications. According to the patient, she was referred to a psychiatrist for the presumed history of pseudoseizures, and her psychiatrist told her that she was having real seizures and not pseudoseizures. I ordered an MRI of the brain with and without contrast which showed no acute intracranial abnormalities, but there was evidence of a 1.5 x 0.8 cm meningioma in the left frontal region. Her CBC was normal. Her basic metabolic profile was normal except for hyperglycemia at 165. Her magnesium level was slightly elevated at 2.8. Her CPK and TSH were normal. A urine drug screen was done which was positive for opiates and benzodiazepine. She denies any headache or lateralizing numbness or weakness. PAST MEDICAL HISTORY: 1. Seizures. 2. Asthma. 3. Diabetes. 4. Fibromyalgia. 5. Dyslipidemia. 6. Hypertension. 7. Arthritis. 8. Ehler-Danlos syndrome. 9. History of . 10.Orthopedic surgeries. SOCIAL HISTORY: She denies any tobacco, alcohol or drug use. FAMILY HISTORY: Positive for cancer. HOME MEDICATIONS: Reviewed in the chart. ALLERGIES: MULTIPLE ALLERGIES reviewed in the chart. REVIEW OF SYSTEMS: CONSTITUTIONAL: Positive for fatigue. EYES: Negative. ENT: Positive for chronic diminished hearing. CARDIOVASCULAR: Negative. RESPIRATORY: Positive for occasional shortness of breath. NEUROLOGICAL: As mentioned above. GASTROINTESTINAL: Positive for occasional heartburn. GENITOURINARY: Negative. PSYCHIATRIC: Negative. ENDOCRINE: Positive for diabetes. MUSCULOSKELETAL: Positive for frequent joint pain and muscle pain. DERMATOLOGICAL: Negative. PHYSICAL EXAMINATION: Vital signs show a temperature of 97.0, pulse 74, respiration 16, blood pressure 119/64. GENERAL APPEARANCE: The patient is a well-developed female who appears to be in no acute distress. HEENT: Normocephalic, atraumatic. No facial asymmetry is seen. NECK: Supple with no masses felt. CARDIOVASCULAR: Regular rate and rhythm. ABDOMEN: Nontender, nondistended. Extremities showed no edema or clubbing. NEUROLOGICAL EXAM: The patient is awake and oriented x3. Speech and language are normal. Strength is full in all 4 extremities. Sensory exam was normal to light touch in all 4 extremities. No facial asymmetry is seen on cranial nerve testing. No tremors or seizure-like activity is seen. IMPRESSION: 1. Generalized tonic-clonic seizures. 2. Meningioma. RECOMMENDATION: The patient has had several seizure-like activities consistent with generalized tonic- clonic seizures with postictal confusion. As mentioned above, her EEG did show epileptic activity mainly with photic stimulation. I will keep her on Keppra 1000 mg b.i.d. A repeat EEG will be done in the morning. The patient was told that she is not to drive or operate any heavy machinery for a period of 6 months. As for her meningioma, I do not believe this is provoking any seizures, as it is small, as mentioned above. I do recommend annual MRIs. Continue neuro checks and seizure precautions. I will continue to follow with you. Further recommendations to follow. Thank you for allowing me to participate in the care of your patient. If you have any questions, please feel free to contact me. MMJACKELYN / ALONDRAN: [id number] /
[2017-11-18 05:55] LABS: Glucose,Whole Blood 138 mg/dL (75-99)
[2017-11-18 06:40] LABS: Anion Gap 6 mmol/L; Blood Urea Nitrogen 22 mg/dL (7-17); Calcium 9.3 mg/dL (8.4-10.2); Carbon Dioxide 25 mmol/L (22-30); Chloride 109 mmol/L (98-107); Glucose 133 mg/dL (74-99); Magnesium 1.9 mg/dL (1.6-2.3); Potassium 4.2 mmol/L (3.5-5.1); Sodium 140 mmol/L (137-145)
[2017-11-18] MEDS: metFORMIN 500 MG TAB PO SCH ×2 (06:46→17:54)
[2017-11-18] MEDS: INSULIN ASPART 100 UNIT/ML 1 ML 10 ML VIAL SQ SCH ×4 (06:46→20:00)
[2017-11-18] MEDS: levETIRAcetam IV 1,000 MG in SALINE 1 100ML.BAG IVPB SCH (07:34)
[2017-11-18] MEDS: ALBUTEROL NEBULIZED 2.5 MG/3 ML INHALATION PRN ×4 (07:54→20:10)
[2017-11-18] MEDS: LORazepam 2 MG/ML INJ IV PRN ×2 (08:20→11:56)
[2017-11-18] MEDS: ENOXAPARIN 40 MG/0.4 ML SYRINGE SQ SCH (08:20)
[2017-11-18] MEDS: DOXYCYCLINE 100 MG CAP PO SCH ×2 (08:21→20:00)
[2017-11-18] MEDS: CALCITRIOL 0.25 MCG CAP PO SCH (08:21)
[2017-11-18] MEDS: DULoxetine HCL 20 MG CAPSULE.DR PO SCH (08:21)
[2017-11-18] MEDS: GLIMEPIRIDE 4 MG TAB PO SCH (08:22)
[2017-11-18] MEDS: GABAPENTIN 300 MG CAP PO SCH ×2 (08:22→13:34)
[2017-11-18] MEDS: EZETIMIBE 10 MG TAB PO SCH (08:23)
[2017-11-18] MEDS: PIOGLITAZONE 30 MG TAB PO SCH (08:23)
[2017-11-18] MEDS: Acetaminophen-Codeine 300-30mg TAB PO PRN ×2 (08:40→17:57)
[2017-11-18] MEDS: MAGNESIUM OXIDE 400 MG TAB PO SCH ×2 (08:43→20:00)
[2017-11-18] MEDS: NIFEdipine XL 30 MG TAB.ER.24 PO SCH (08:44)
[2017-11-18 12:36] LABS: Glucose,Whole Blood 105 mg/dL (75-99)
[2017-11-18] MEDS: FARXIGA 10 MG PO SCH (13:31)
--- NOTE | 2017-11-18 14:12 | P.PN ---
Subjective Progress Note Date: 11/18/17 This is a pleasant 47 year old pleasant lady patient of Dr correa with DM2 FMS Ehler Danlos syndrome admitted from the ER after she was noted to have tonic clonic contaction of upper and lower extremities at the recovery room with 2 episodes of toniccolonic contractions of upper extremity and lower extremity accompanied unresponsiveness, lasting approximately 6-10 minutes, patient was subsequently seen in the emergency room to evaluate this further, She has previous similar episodes for which Dr Tucker neurology has seen her as states its pseudoseizures, She saw a psychiatrist stating this is not stress induced pseudoseizures. [facility] no appontmentscheduled yet Emergency room severe hypocalcemia with calcium levels of 4.7,magnesium is extremely low0.8, PTH of 45.8glucose of 178all were aggressively replaced, patient has one tonic-clonic contraction of the upper extremity which was noted in the medical floor selective unit, consult were made with neurology, tetany is under the differential. She has blood workat [facility] which shows normal PTH level, calcium level at that time was 10.9. There is no new medication changes from PCP, in fact-up 5 was discontinued, and duloxetine was decreased from 60 mg to 30 mg twice a day. Patient denies any fever or chills abdominal pain, she does have abdominal pain secondary to the positioning from her seroma surgery, Dr. Boogie has performed a 3 cm neuroma removal on 2017 prior to her ER transfer. [place] were discontinued today by Dr. Boogie , MRI of the brain to be done 11/18: Patient is seen and followed by Dr. Iyer. EEG did show epileptic activity mainly in the photic stimulation and he recommends continuing Keppra at 1000 mg twice daily. A repeat EEG is being done today. Patient has been instructed by neurology of no driving or operating heavy machinery for [address] Iyer does not believe meningioma is provoking any seizures and does recommend annual MRIs. Patient voices that she would like to follow-up with Dr. Iyer as an outpatient. MRI of the brain shows no significant new or acute findings identified. 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 Patient will be monitored overnight and plan for discharge tomorrow. Repeat magnesium and calcium are normal. Telemetry will be discontinued. Keppra will be changed over to oral and Keppra level to be checked in the morning. Objective - Vital Signs Vital signs: Vital Signs Temp 97.1 F L 11/18/17 04:00 Pulse 76 11/18/17 08:14 Resp 15 11/18/17 04:00 BP 123/71 11/18/17 04:00 Pulse Ox 98 11/18/17 07:55 Intake & Output 11/17/17 11/18/17 11/18/17 18:59 06:59 18:59 Intake Total 536 30 Output Total 2800 Balance 536 -2770 Weight 93.4 kg Intake: IV 30 Invasive Line 2 30 Intake, IV Titration 100 Amount levETIRAcetam IV 500 mg 100 In Sodium Chloride 0.9% 100 ml @ 400 mls/hr IVPB ONCE STA Rx#:[id number] Oral 436 Output: Urine 2800 Other: Voiding Method Bedside Commode Bedside Commode # Voids 1 1 - Exam - Constitutional General appearance: cooperative, no acute distress - EENT Eyes: anicteric sclerae, EOMI, dentition normal, normal appearance ENT: NA/AT, normal oropharynx - Neck Neck: normal ROM - Respiratory Respiratory: bilateral: CTA, negative: diminished, dullness, rales, rhonchi, wheezing - Labs CBC & Chem 7: 11/17/17 06:11 11/18/17 05:56 Labs: Abnormal Lab Results - Last 24 Hours (Table) 11/17/17 11/17/17 11/17/17 Range/Units 06:11 11:50 16:43 Chloride (98-107) mmol/L BUN (7-17) mg/dL Glucose (74-99) mg/dL POC Glucose (mg/dL) 157 H 164 H (75-99) mg/dL Hemoglobin A1c 8.4 H (4.0-6.0) % 11/17/17 11/18/17 11/18/17 Range/Units 20:56 05:54 05:56 Chloride 109 H (98-107) mmol/L BUN 22 H (7-17) mg/dL Glucose 133 H (74-99) mg/dL POC Glucose (mg/dL) 161 H 138 H (75-99) mg/dL Hemoglobin A1c (4.0-6.0) % Assessment and Plan Plan: 1. Tonic-clonic seizures, grand mal seizures exacerbated by severe hypocalcemia and hypomagnesemia. Ruled out primary hypoparathyroidism. Discontinue vitamin D3 supplementation. Electrolytes to be monitored daily. Consult with Dr. Shireen samson. MRI and EEG report as above. Patient started on Keppra which will be switched over to oral in a couple level will be checked in the morning. 2. Diabetes mellitus type 2. Continue metformin 1000 mg twice daily, Actos 30 mg daily, NPH 15 units with supper, NovoLog scale. 3. Fibromyalgia with chronic pain on gabapentin, duloxetine 40 mg daily a day, 4. Hyperlipidemiaon Zetia 5. Status post neuroma excision right side of the scalp, status post staple removal for an MRI imaging studies, surgical wound has been glued surgery performed 11/16/2017on prophylaxis doxycycline per recommendation Discharge plan: Return home tomorow Impression and plan of care have been directed as dictated by the signing physician. Nela Cobian nurse practitioner acting as scribe for signing physician.
[2017-11-18 16:39] LABS: Glucose,Whole Blood 134 mg/dL (75-99)
--- NOTE | 2017-11-18 18:39 | EEG ---
ELECTROENCEPHALOGRAM REPORT DATE OF SERVICE: 11/18/2017 REASON FOR TESTING: Seizures. CURRENT ANTIEPILEPTIC MEDICATIONS: Keppra. DESCRIPTION OF THE PROCEDURE: This EEG was performed using a 21-channel digital electroencephalograph, following international 10-20 system. DESCRIPTION OF THE RECORDING: From the beginning of the tracing, and with the patient's eyes closed, the background rhythm was mostly consisting of 9 Hz alpha frequency in the posterior occipital leads. No obvious asymmetry is seen. Occasional movement and muscle artifacts are seen. A short run of spike and slow wave activity is seen in the left temporal lead without any generalization. Photic stimulation was performed with no driving response seen. No pathological waves were elicited this time. Hyperventilation was not performed. The patient remains awake throughout the tracing. Her EKG lead showed a regular rate and rhythm. INTERPRETATION: This awake EEG is abnormal due to the presence of a short run of sharp and slow wave activity, mainly in the left temporal region, without any generalization seen. Overall, this EEG is improved when compared to her 11/17/2017 EEG. Clinical correlation is recommended. EILEEN / BARBARA: [id number] /
[2017-11-18 19:48] LABS: Glucose,Whole Blood 186 mg/dL (75-99)
[2017-11-18] MEDS: levETIRAcetam 500 MG TAB PO SCH (20:00)
[2017-11-18] MEDS: PRAVASTATIN SODIUM 40 MG TAB PO SCH (20:00)
[2017-11-18] MEDS: INSULIN NPH 300 UNIT/3 ML VIAL SQ SCH (20:01)
[2017-11-18] MEDS: traZODone HCL 100 MG TAB PO SCH (20:32)
[2017-11-18] MEDS: GABAPENTIN 400 MG CAP PO SCH (20:32)
--- NOTE | 2017-11-18 22:04 | P.PN ---
Subjective Progress Note Date: 11/18/17 Principal diagnosis: Seizure Neurology is following a 47-year-old female for seizure. Patient had outpatient surgery and was in recovery and had a witnessed seizure that was described as generalized tonic-clonic seizure lasting approximately 1 minute followed by approximately 10 minutes of postictal drowsiness. Patient had a second seizure and was transferred to the emergency room where she was admitted for further workup and management. Patient was then taken for EEG and had another seizure during the EEG. Patient at that point was already on Keppra 750 mg twice a day. EEG was noted to show epileptic activity during photic stimulation. Keppra was increased to a thousand milligrams twice a day. Patient has not had any further seizure activity since the increased dose of Keppra. 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 Psychiatrist did not agree with previous neurologists diagnosis and recommended she seek second opinion. Patient did have MRI ordered since being admitted which showed no acute intracranial abnormality but there was evidence of a 1.5 x 0.8 cm meningioma in the left frontal region. Patient did have a second EEG this evening and was noted to have some improvement with her seizure activity which was noted in the left temporal region. On contact, patient was resting in bed, no acute distress, family and the room. Discussed with patient in the presence of family that under [place] law, patient cannot operate a motor vehicle for 6 months from the date of last seizure recurrence. Patient and family expressed understanding. Objective - Vital Signs Vital signs: Vital Signs Temp 98.2 F 11/18/17 14:18 Pulse 82 11/18/17 20:19 Resp 16 11/18/17 20:19 BP 127/79 11/18/17 14:18 Pulse Ox 95 11/18/17 14:18 Intake & Output 11/18/17 11/18/17 11/19/17 06:59 18:59 06:59 Intake Total 30 Output Total 2800 Balance -2770 Weight 93.4 kg Intake: IV 30 Invasive Line 2 30 Output: Urine 2800 Other: Voiding Method Bedside Commode # Voids 1 2 - Exam General appearance: Alert & oriented x3, no apparent distress. Head: Atraumatic, normocephalic, normal inspection Eyes: Well appearance, PERRLA, EOMI. Absent scleral icterus, conjunctival injection, nystagmus, periorbital swelling. Ear, nose and throat: Normal exam, mucous membranes moist Neck: Normal inspection, absent tenderness, lymphadenopathy. Respiratory: No increased work of breathing Cardiovascular: Regular rate, rhythm GI/abdominal: No guarding Extremities: Full range of motion, normal capillary refill, no tenderness, pedal edema joint swelling, calf tenderness. Neurological: cranial nerves II through XII intact no lateralizing weakness no seizure activity noted on physical exam no pronator drift and no nystagmus. Left lower extremity: 5/5 Right lower extremity: 5/5 Left upper extremity: 5/5 Right upper extremity:5 /5 Sensation: Left lower extremity: normal Right lower extremity: normal Left upper extremity: normal Right upper extremity:normal Psychological: Mood and Affect appropriate for setting - Labs CBC & Chem 7: 11/17/17 06:11 11/18/17 05:56 Labs: Abnormal Lab Results - Last 24 Hours (Table) 11/18/17 11/18/17 11/18/17 Range/Units 05:54 05:56 12:35 Chloride 109 H (98-107) mmol/L BUN 22 H (7-17) mg/dL Glucose 133 H (74-99) mg/dL POC Glucose (mg/dL) 138 H 105 H (75-99) mg/dL 11/18/17 11/18/17 Range/Units 16:38 19:46 Chloride (98-107) mmol/L BUN (7-17) mg/dL Glucose (74-99) mg/dL POC Glucose (mg/dL) 134 H 186 H (75-99) mg/dL Assessment and Plan (1) Seizure Current Visit: Yes Status: Acute Code(s): R56.9 - UNSPECIFIED CONVULSIONS SNOMED Code(s): 66901430 (2) Meningioma Current Visit: Yes Status: Acute Code(s): D32.9 - BENIGN NEOPLASM OF MENINGES, UNSPECIFIED SNOMED Code(s): 528919486 Plan: continue seizure precautions Continue Keppra at existing dose and frequency 1000 mg twice a day continue neuro checks every shift or as previously implemented Status: Neurology will continue to follow and provide updates as needed or warranted. I have discussed the plan of care with the physician prior to implementation and he agrees with the plan as implemented.
[2017-11-19 07:01] LABS: Glucose,Whole Blood 83 mg/dL (75-99)
[2017-11-19] MEDS: INSULIN ASPART 100 UNIT/ML 1 ML 10 ML VIAL SQ SCH ×4 (07:28→21:48)
[2017-11-19] MEDS: ALBUTEROL NEBULIZED 2.5 MG/3 ML INHALATION PRN ×3 (07:32→20:07)
[2017-11-19] MEDS: FARXIGA 10 MG PO SCH (08:32)
[2017-11-19 08:38] LABS: ALT 44 U/L (9-52); AST 38 U/L (14-36); Albumin 3.8 g/dL (3.5-5.0); Alkaline Phosphatase 48 U/L (38-126); Anion Gap 9 mmol/L; Blood Urea Nitrogen 17 mg/dL (7-17); Calcium 9.8 mg/dL (8.4-10.2); Carbon Dioxide 23 mmol/L (22-30); Chloride 109 mmol/L (98-107); Glucose 81 mg/dL (74-99); Magnesium 1.7 mg/dL (1.6-2.3); Potassium 4.4 mmol/L (3.5-5.1); Sodium 141 mmol/L (137-145); Total Bilirubin 0.4 mg/dL (0.2-1.3); Total Protein 6.5 g/dL (6.3-8.2)
[2017-11-19] MEDS: DULoxetine HCL 20 MG CAPSULE.DR PO SCH (09:12)
[2017-11-19] MEDS: metFORMIN 500 MG TAB PO SCH ×2 (09:12→19:26)
[2017-11-19] MEDS: levETIRAcetam 500 MG TAB PO SCH ×2 (09:12→21:11)
[2017-11-19] MEDS: NIFEdipine XL 30 MG TAB.ER.24 PO SCH (09:13)
[2017-11-19] MEDS: ENOXAPARIN 40 MG/0.4 ML SYRINGE SQ SCH (09:13)
[2017-11-19] MEDS: CALCITRIOL 0.25 MCG CAP PO SCH (09:13)
[2017-11-19] MEDS: GABAPENTIN 300 MG CAP PO SCH ×2 (09:13→14:43)
[2017-11-19] MEDS: GLIMEPIRIDE 4 MG TAB PO SCH (09:13)
[2017-11-19] MEDS: MAGNESIUM OXIDE 400 MG TAB PO SCH ×2 (09:13→21:11)
[2017-11-19] MEDS: DOXYCYCLINE 100 MG CAP PO SCH ×2 (09:13→21:11)
[2017-11-19] MEDS: Acetaminophen-Codeine 300-30mg TAB PO PRN ×2 (09:14→17:11)
[2017-11-19] MEDS: EZETIMIBE 10 MG TAB PO SCH (09:14)
[2017-11-19] MEDS: PIOGLITAZONE 30 MG TAB PO SCH (09:14)
[2017-11-19 12:02] LABS: Glucose,Whole Blood 110 mg/dL (75-99)
--- NOTE | 2017-11-19 13:42 | P.PN ---
Subjective Progress Note Date: 11/19/17 This is a pleasant 47 year old pleasant lady patient of Dr correa with DM2 FMS Ehler Danlos syndrome admitted from the ER after she was noted to have tonic clonic contaction of upper and lower extremities at the recovery room with 2 episodes of toniccolonic contractions of upper extremity and lower extremity accompanied unresponsiveness, lasting approximately 6-10 minutes, patient was subsequently seen in the emergency room to evaluate this further, She has previous similar episodes for which Dr Tucker neurology has seen her as states its pseudoseizures, She saw a psychiatrist stating this is not stress induced pseudoseizures. [facility] is [facility] to [facility] for eval no appontmentscheduled yet Emergency room severe hypocalcemia with calcium levels of 4.7,magnesium is extremely low0.8, PTH of 45.8glucose of 178all were aggressively replaced, patient has one tonic-clonic contraction of the upper extremity which was noted in the medical floor selective unit, consult were made with neurology, tetany is under the differential. She has blood workat [facility] which shows normal PTH level, calcium level at that time was 10.9. There is no new medication changes from PCP, in fact-up 5 was discontinued, and duloxetine was decreased from 60 mg to 30 mg twice a day. Patient denies any fever or chills abdominal pain, she does have abdominal pain secondary to the positioning from her seroma surgery, Dr. Boogie has performed a 3 cm neuroma removal on 2017 prior to her ER transfer. [place] were discontinued today by Dr. Boogie , MRI of the brain to be done 11/18: Patient is seen and followed by Dr. Iyer. EEG did show epileptic activity mainly in the photic stimulation and he recommends continuing Keppra at 1000 mg twice daily. A repeat EEG is being done today. Patient has been instructed by neurology of no driving or operating heavy machinery for [address] Iyer does not believe meningioma is provoking any seizures and does recommend annual MRIs. Patient voices that she would like to follow-up with Dr. Iyer as an outpatient. MRI of the brain shows no significant new or acute findings identified. 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 Patient will be monitored overnight and plan for discharge tomorrow. Repeat magnesium and calcium are normal. Telemetry will be discontinued. Keppra will be changed over to oral and Keppra level to be checked in the morning. 11/19: Patient was prepared for discharge home today but she is complaining of pain of unclear etiology. Recheck electrolytes in the morning anticipate discharge tomorrow. Patient does have some nasal congestion and Flonase added. She has been cleared for discharge by Dr. Iyer. Objective - Vital Signs Vital signs: Vital Signs Temp 98 F 11/19/17 12:46 Pulse 99 11/19/17 12:46 Resp 18 11/19/17 12:46 BP 130/81 11/19/17 12:46 Pulse Ox 95 11/19/17 12:46 Intake & Output 11/18/17 11/19/17 11/19/17 18:59 06:59 18:59 Intake Total 250 Balance 250 Intake: Oral 250 Other: Voiding Method Bedside Commode # Voids 2 1 - Exam - Constitutional General appearance: cooperative, no acute distress - EENT Eyes: anicteric sclerae, EOMI, dentition normal, normal appearance ENT: NA/AT, normal oropharynx - Neck Neck: normal ROM - Respiratory Respiratory: bilateral: CTA, negative: diminished, dullness, rales, rhonchi, wheezing - Labs CBC & Chem 7: 11/17/17 06:11 11/19/17 07:42 Labs: Abnormal Lab Results - Last 24 Hours (Table) 11/18/17 11/18/17 11/19/17 Range/Units 16:38 19:46 07:42 Chloride 109 H (98-107) mmol/L POC Glucose (mg/dL) 134 H 186 H (75-99) mg/dL AST 38 H (14-36) U/L 11/19/17 Range/Units 11:57 Chloride (98-107) mmol/L POC Glucose (mg/dL) 110 H (75-99) mg/dL AST (14-36) U/L Assessment and Plan Plan: 1. Tonic-clonic seizures, grand mal seizures exacerbated by severe hypocalcemia and hypomagnesemia. Ruled out primary hypoparathyroidism. Discontinue vitamin D3 supplementation. Electrolytes to be monitored daily. Consult with Dr. Iyer appreciated. MRI and EEG report as above. Patient started on Keppra which will be switched over to oral and Keppra level checked. 2. Diabetes mellitus type 2. Continue metformin 1000 mg twice daily, Actos 30 mg daily, NPH 15 units with supper, NovoLog scale. 3. Fibromyalgia with chronic pain on gabapentin, duloxetine 40 mg daily a day, 4. Hyperlipidemiaon Zetia 5. Status post neuroma excision right side of the scalp, status post staple removal for an MRI imaging studies, surgical wound has been glued surgery performed 11/16/2017on prophylaxis doxycycline per recommendation Discharge plan: Return home tomorow Impression and plan of care have been directed as dictated by the signing physician. Nela Cobian nurse practitioner acting as scribe for signing physician.
[2017-11-19 17:37] LABS: Glucose,Whole Blood 88 mg/dL (75-99)
[2017-11-19] MEDS: INSULIN NPH 300 UNIT/3 ML VIAL SQ SCH (19:26)
[2017-11-19 20:02] LABS: Glucose,Whole Blood 246 mg/dL (75-99)
[2017-11-19 20:59] LABS: Glucose,Whole Blood 226 mg/dL (75-99)
[2017-11-19] MEDS: traZODone HCL 100 MG TAB PO SCH (21:11)
[2017-11-19] MEDS: PRAVASTATIN SODIUM 40 MG TAB PO SCH (21:11)
[2017-11-19] MEDS: GABAPENTIN 400 MG CAP PO SCH (21:11)
[2017-11-20] MEDS: Acetaminophen-Codeine 300-30mg TAB PO PRN ×2 (01:52→10:18)
[2017-11-20 05:34] LABS: Glucose,Whole Blood 156 mg/dL (75-99)
[2017-11-20 05:43] VITALS: BP 108/74; RESP 16; TEMP 97.8
[2017-11-20 07:05] LABS: Glucose,Whole Blood 140 mg/dL (75-99)
[2017-11-20 07:23] LABS: Anion Gap 10 mmol/L; Blood Urea Nitrogen 19 mg/dL (7-17); Calcium 9.7 mg/dL (8.4-10.2); Carbon Dioxide 24 mmol/L (22-30); Chloride 108 mmol/L (98-107); Glucose 134 mg/dL (74-99); Magnesium 1.8 mg/dL (1.6-2.3); Phosphorus 5.2 mg/dL (2.5-4.5); Potassium 4.3 mmol/L (3.5-5.1); Sodium 142 mmol/L (137-145)
[2017-11-20] MEDS: INSULIN ASPART 100 UNIT/ML 1 ML 10 ML VIAL SQ SCH (07:58)
[2017-11-20] MEDS: NIFEdipine XL 30 MG TAB.ER.24 PO SCH (07:59)
[2017-11-20] MEDS: levETIRAcetam 500 MG TAB PO SCH (07:59)
[2017-11-20] MEDS: PIOGLITAZONE 30 MG TAB PO SCH (07:59)
[2017-11-20] MEDS: MAGNESIUM OXIDE 400 MG TAB PO SCH (07:59)
[2017-11-20] MEDS: GABAPENTIN 300 MG CAP PO SCH (08:00)
[2017-11-20] MEDS: GLIMEPIRIDE 4 MG TAB PO SCH (08:00)
[2017-11-20] MEDS: EZETIMIBE 10 MG TAB PO SCH (08:00)
[2017-11-20] MEDS: ENOXAPARIN 40 MG/0.4 ML SYRINGE SQ SCH (08:00)
[2017-11-20] MEDS: DOXYCYCLINE 100 MG CAP PO SCH (08:01)
[2017-11-20] MEDS: metFORMIN 500 MG TAB PO SCH (08:01)
[2017-11-20] MEDS: FARXIGA 10 MG PO SCH (08:01)
[2017-11-20] MEDS: CALCITRIOL 0.25 MCG CAP PO SCH (08:01)
[2017-11-20] MEDS: DULoxetine HCL 20 MG CAPSULE.DR PO SCH (08:01)
[2017-11-20] MEDS ORDERED: FLUTICASONE 50MCG/SPRAY NASAL 16GM EA NOSTRIL SCH (09:00)
[2017-11-20] MEDS: ALBUTEROL NEBULIZED 2.5 MG/3 ML INHALATION PRN (09:15)
[2017-11-20 09:30] VITALS: PULSE 112
[2017-11-20 11:17] LABS: Glucose,Whole Blood 134 mg/dL (75-99)
--- NOTE | 2017-11-20 12:30 | P.DS ---
Providers Date of admission: 11/16/17 16:21 Expected date of discharge: 11/19/17 Attending physician: Meghana Moreno Consults: 11/16/17 16:19 Consult Physician Routine Consulting Provider: Apolinar Cifuentes Consult Reason/Comments: postOp Do you want consulting provider notified?: Yes 11/16/17 21:03 Consult Physician Routine Consulting Provider: Kelly Iyer Consult Reason/Comments: seizure activity post-op Do you want consulting provider notified?: Yes, Notify in am Primary care physician: Mario Correa [place] Hospital Course: This is a pleasant 47 year old pleasant lady patient of Dr correa with DM2 FMS Ehler Danlos syndrome admitted from the ER after she was noted to have tonic clonic contaction of upper and lower extremities at the recovery room with 2 episodes of toniccolonic contractions of upper extremity and lower extremity accompanied unresponsiveness, lasting approximately 6-10 minutes, patient was subsequently seen in the emergency room to evaluate this further, She has previous similar episodes for which Dr Garrett bateman has seen her as states its pseudoseizures, She saw a psychiatrist stating this is not stress induced pseudoseizures. [facility] eval no appontmentscheduled yet Emergency room severe hypocalcemia with calcium levels of 4.7,magnesium is extremely low0.8, PTH of 45.8glucose of 178all were aggressively replaced, patient has one tonic-clonic contraction of the upper extremity which was noted in the medical floor selective unit, consult were made with neurology, tetany is under the differential. She has [facility]at [facility] which shows normal PTH level, calcium level at that time was 10.9. There is no new medication changes from PCP, in fact-up 5 was discontinued, and duloxetine was decreased from 60 mg to 30 mg twice a day. Patient denies any fever or chills abdominal pain, she does have abdominal pain secondary to the positioning from her seroma surgery, Dr. Boogie has performed a 3 cm neuroma removal on 2017 prior to her ER transfer. [place] were discontinued today by Dr. Boogie , MRI of the brain to be done 11/18: Patient is seen and followed by Dr. Iyer. EEG did show epileptic activity mainly in the photic stimulation and he recommends continuing Keppra at 1000 mg twice daily. A repeat EEG is being done today. Patient has been instructed by neurology of no driving or operating heavy machinery for [address] Iyer does not believe meningioma is provoking any seizures and does recommend annual MRIs. Patient voices that she would like to follow-up with Dr. Iyer as an outpatient. MRI of the brain shows no significant new or acute findings identified. 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 Patient will be monitored overnight and plan for discharge tomorrow. Repeat magnesium and calcium are normal. Telemetry will be discontinued. Keppra will be changed over to oral and Keppra level to be checked in the morning. 11/19: Patient was prepared for discharge home today but she is complaining of pain of unclear etiology. Recheck electrolytes in the morning anticipate discharge tomorrow. Patient does have some nasal congestion and Flonase added. She has been cleared for discharge by Dr. Iyer. 11/20: Patient has had no further self-reported seizure activity. Patient will be discharged home today in stable condition. Discharge diagnoses: 1. Tonic-clonic seizures, grand mal seizures exacerbated by severe hypocalcemia and hypomagnesemia. Ruled out primary hypoparathyroidism. 2. Diabetes mellitus type 2. 3. Fibromyalgia with chronic pain 4. Hyperlipidemiaon 5. Status post neuroma excision right side of the scalp, status post staple removal for an MRI imaging studies, surgical wound has been glued surgery performed 11/16/2017on prophylaxis doxycycline per recommendation Discharge plan: Return home Impression and plan of care have been directed as dictated by the signing physician. Nela Cobian nurse practitioner acting as scribe for signing physician. Patient Condition at Discharge: Good Plan - Discharge Summary Discharge Rx Participant: Yes New Discharge Prescriptions: New levETIRAcetam [Keppra] 1,000 mg PO Q12HR #60 tab Calcitriol [Rocaltrol] 0.5 mcg PO DAILY #30 cap Continue Glimepiride [Amaryl] 4 mg PO QAM Ranitidine HCl [Zantac] 150 mg PO BID Ibuprofen 800 mg PO TID-W/MEALS PRN PRN Reason: Pain Levalbuterol Hfa Inhaler [Xopenex Hfa Inhaler] 2 puff INHALATION RT-QID PRN PRN Reason: Shortness Of Breath Pravastatin Sodium [Pravachol] 40 mg PO HS Montelukast [Singulair] 10 mg PO HS Dapagliflozin Propanediol [Farxiga] 10 mg PO QAM Ascorbic Acid [Vitamin C] 1,000 mg PO DAILY traZODone HCL [Desyrel] 100 mg PO HS Insulin NPH Human Isophane [humuLIN N] 15 unit SQ AC-SUPPER Gabapentin [Neurontin] 300 mg PO PC-LUNCH Gabapentin 600 mg PO QAM Gabapentin 1,200 mg PO HS Acetaminophen with Codeine [Tylenol w/codeine #3] 1 tab PO TID PRN PRN Reason: Pain metFORMIN HCL [metFORMIN HCL ER] 1,000 mg PO BID-W/MEALS Nystatin/Triamcin [Nystatin-Triamcinolone Cream] 1 applicate TOPICAL TID NIFEdipine [Procardia XL] 30 mg PO DAILY Zinc 25 25 mg PO DAILY Pioglitazone HCl 30 mg PO DAILY Ezetimibe [Zetia] 10 mg PO DAILY DULoxetine HCL [Cymbalta] 40 mg PO DAILY Loratadine [Claritin] 10 mg PO DAILY Changed Magnesium Oxide 400 mg PO BID #0 Discontinued Cholecalciferol [Vitamin D3] 1,000 unit PO DAILY Triamterene/Hydrochlorothiazid [Maxzide 37.5-25] 0.5 - 1 tab PO DAILY Discharge Medication List Glimepiride [Amaryl] 4 mg PO QAM 02/10/17 [History] Ibuprofen 800 mg PO TID-W/MEALS PRN 02/10/17 [History] Levalbuterol Hfa Inhaler [Xopenex Hfa Inhaler] 2 puff INHALATION RT-QID PRN [History] Montelukast [Singulair] 10 mg PO HS 02/10/17 [History] Pravastatin Sodium [Pravachol] 40 mg PO HS 02/10/17 [History] Ranitidine HCl [Zantac] 150 mg PO BID 02/10/17 [History] Ascorbic Acid [Vitamin C] 1,000 mg PO DAILY 11/12/17 [History] Dapagliflozin Propanediol [Farxiga] 10 mg PO QAM 11/12/17 [History] Gabapentin 1,200 mg PO HS 11/12/17 [History] Gabapentin 600 mg PO QAM 11/12/17 [History] Gabapentin [Neurontin] 300 mg PO PC-LUNCH 11/12/17 [History] Insulin NPH Human Isophane [humuLIN N] 15 unit SQ AC-SUPPER 11/12/17 [History] traZODone HCL [Desyrel] 100 mg PO HS 11/12/17 [History] Acetaminophen with Codeine [Tylenol w/codeine #3] 1 tab PO TID PRN 11/16/17 [ History] DULoxetine HCL [Cymbalta] 40 mg PO DAILY 11/16/17 [History] Ezetimibe [Zetia] 10 mg PO DAILY 11/16/17 [History] Loratadine [Claritin] 10 mg PO DAILY 11/16/17 [History] NIFEdipine [Procardia XL] 30 mg PO DAILY 11/16/17 [History] Nystatin/Triamcin [Nystatin-Triamcinolone Cream] 1 applicate TOPICAL TID [History] Pioglitazone HCl 30 mg PO DAILY 11/16/17 [History] Zinc 25 25 mg PO DAILY 11/16/17 [History] metFORMIN HCL [metFORMIN HCL ER] 1,000 mg PO BID-W/MEALS 11/16/17 [History] Magnesium Oxide 400 mg PO BID #0 11/18/17 [Rx] levETIRAcetam [Keppra] 1,000 mg PO Q12HR #60 tab 11/18/17 [Rx] Calcitriol [Rocaltrol] 0.5 mcg PO DAILY #30 cap 11/19/17 [Rx] Follow up Appointment(s)/Referral(s): Kelly Iyer MD [STAFF PHYSICIAN] - 2 Weeks (Dr. Iyer's office will call patient with an appointment date and time. ) Mario Correa MD [Primary Care Provider] - 11/25/17 12:45 pm (Thursday) Vilma Gonzalez MD [STAFF PHYSICIAN] - 1 Week (Dr. Gonzalez's office will call patient with an appointment date and time. ) Patient Instructions/Handouts: Calcitriol (By mouth), Levetiracetam (By mouth) , Hypokalemia (DC), Hypocalcemia (DC), New-Onset Seizure in Adults (DC) Discharge Disposition: HOME SELF-CARE
== END 2017-11-20 12:45 | disposition home or self-care (01) | DRG 101 ==
LOC: EC 14:55 → 5MS5E 16:21 → 6SEL 17:33 → 5MS5E 11-18 07:48
PROVIDERS: ADMIT Family Medicine; ATTEND Family Medicine
DX: G40.409 Other generalized epilepsy and epileptic syndromes, not intractable, without status epilepticus (principal); Q79.6 Ehlers-Danlos syndromes; E83.51 Hypocalcemia; E83.42 Hypomagnesemia; E11.65 Type 2 diabetes mellitus with hyperglycemia; E87.6 Hypokalemia; G89.29 Other chronic pain; I10 Essential (primary) hypertension; M79.7 Fibromyalgia; E78.5 Hyperlipidemia, unspecified; J45.909 Unspecified asthma, uncomplicated; L90.5 Scar conditions and fibrosis of skin; D18.02 Hemangioma of intracranial structures; D16.4 Benign neoplasm of bones of skull and face; M19.91 Primary osteoarthritis, unspecified site; Z79.4 Long term (current) use of insulin; Z79.899 Other long term (current) drug therapy; Z98.891 History of uterine scar from previous surgery; Z88.1 Allergy status to other antibiotic agents; Z88.7 Allergy status to serum and vaccine; Z88.8 Allergy status to other drugs, medicaments and biological substances; Z80.1 Family history of malignant neoplasm of trachea, bronchus and lung
CPT/HCPCS: 36415; 70450; 70553; 80048; 80053; 80177; 80306; 81001; 81025; 82330; 82550; 83036; 83520; 83735; 83970; 84100; 84146; 84443; 85025; 88305; 93005; 94640; 94760; 95816; 95819; 96361; 96374; 96375; 99291

== ENCOUNTER → 2017-11-16 | Day surgery (SDC) | payer BC ==
[2017-11-12 15:43] VITALS: BMI 35.9
--- NOTE | 2017-11-15 21:00 | HP ---
HISTORY AND PHYSICAL CHIEF COMPLAINT: Painful right postauricular neuroma. 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 She recently returned to my office complaining of having pain in the incisional area. Examination and palpation of the area revealed the patient most likely had a possible formation of a neuroma. It was recommended the patient undergo excision of this neuroma under general anesthesia. The patient was advised that this may or may not possibly completely resolve her symptoms as she has other similar lesions elsewhere in the scalp which are not as large. PAST MEDICAL HISTORY: Past medical history reveals she has: ALLERGIES: TO REVEALS ALLERGIES TO ATROPINE, PENICILLIN, ERYTHROMYCIN, HYOSCYAMINE, PHENOBARBITAL, AND SCOPOLAMINE, AND ALSO . CURRENT MEDICATIONS: Include: Cymbalta, Dyazide, topiramate, Actos, metformin, Zantac, Jardiance, Neurontin, singular, Zetia, pravastatin and Humulin insulin. REVIEW OF SYSTEMS: Cardiovascular is positive hypertension. Respiratory is negative. GASTROINTESTINAL: Positive for GERD. Metabolic/endocrine system is positive for type 2 diabetes mellitus and hypercholesterolemia. Respiratory system is positive for fibromyalgia. Metabolic/ endocrine system is positive also for type 1 diabetes mellitus. 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 She has also had a tubal ligation. The patient is 2 para 1, 1 C section and also excision of fibrolipoma of the right postauricular scalp. The remainder of the review of systems is unremarkable. PHYSICAL EXAMINATION: Patient is a pleasant 47-year-old female who was alert and cooperative. HEENT examination patient is normocephalic. Tympanic membranes are normal. Middle ear spaces are free of any fluid or infection. Pupils equal, round, react to light and accommodation. Extraocular movements within normal limits. Intranasal examination reveals moderate to severe septal deviation with compensatory hypertrophy of the inferior turbinates. Examination of the oropharynx. Palpation of neck and cranial nerves 2 through 12 are within normal limits. Examination of the skin of the right postauricular area reveals the patient has a moderate to severe tenderness in the area of her previous incision in the right postauricular area. The remainder of the head and neck exam is essentially unremarkable. CHEST/CARDIOVASCULAR: Both lung abernathy are clear to percussion and auscultation. The patient is in regular sinus rhythm S1, S2 are present. No murmurs S3s or S4s. Peripheral pulses are bilaterally symmetrical. ABDOMEN: There is no evidence of any masses, megaly, or tenderness. Abdomen soft. Skin is unremarkable. Musculoskeletal and neurological within normal limits. Pelvic and rectal examination: Exam is deferred at this time because the patient has this done on a regular basis at her family physician's office. The remainder of physical exam is unremarkable. ASSESSMENT: Neuroma of the right postauricular scalp. PLAN: The patient is scheduled undergo excision of neuroma of the right postauricular scalp under general anesthesia in a.m. Attention RNs in the pre-surgical area: I have not ordered any pre-surgical prophylactic antibiotics for this patient. If the pharmacy department sends any pre- surgical prophylactic antibiotics to the pre-surgical area for this patient, that order should be cancelled, the medication should be returned to the pharmacy department and make sure that the patient's account is credited appropriately. The only medication that I have ordered for this patient to receive preoperatively is Ofirmev IV 1000 mg, to be given once an intravenous line has been established. I have discussed the risks, benefits and alternative therapies for the above-mentioned procedure and for both sedation/analgesia as well as necessary blood product administration, if indicated, as they pertain to this patient. The patient has indicated his or her understanding and acceptance of the risks and procedures discussed. MMHARRYL / ALONDRAN: [id number] /
[~2017-11-16] MED LIST: ACETAMINOPHEN IV (For NPO) 1,000 MG in EMPTY BAG 1 BAG IVPB ONE; BACITRACIN 500 UNIT/GM OINT 28.4 GM TUBE TOPICAL ONE; BUPIVACAIN-EPI 0.5%-1:200,000 30 ML VIAL SQ ONE; DEXAMETHASONE SOD PHOSPHATE 10 MG/ML 1 ML VIAL IV ONE; HYDROmorphone 0.5 MG/0.5 ML SYRINGE IVP PRN; LACTATED RINGERS 1,000 ML IV SCH; LIDOCAINE 1% 20 ML VIAL (10MG/ML) FOR IV START INTRADERMA PRN; LIDOCAINE 1% INJ 10MG/ML (20 ML MDV) ONE; MIDAZOLAM 2 MG/2 ML VIAL IVP ONE; MIDAZOLAM 2 MG/2 ML VIAL ONE; ONDANSETRON 4 MG/2 ML VIAL IVP ONE; PHENYLEPHRINE-0.9% NACL SYG 1 MG/10 ML SYRINGE ONE; PROPOFOL 10 MG/ML 20 ML VIAL IV ONE; Pre Op ABX Message 1 EACH MISC MISCELLANE ONE; SUCCINYLCHOLINE CHLORIDE 100 MG/5 ML SYR IV ONE; fentaNYL (PF) 50 MCG/ML 2 ML AMP ONE
[2017-11-16 09:32] LABS: Glucose,Whole Blood 197 mg/dL (75-99)
[2017-11-16 11:59] VITALS: RESP 16; TEMP 97
[2017-11-16 12:20] LABS: Glucose,Whole Blood 223 mg/dL (75-99)
[2017-11-16 14:33] VITALS: BP 114/58; PULSE 99
--- NOTE | 2017-11-17 05:47 | OP ---
OPERATIVE REPORT DATE OF SURGERY: 11/16/2017 PREOPERATIVE DIAGNOSIS: Postoperative neuroma of the scalp, approximately 3 cm. POSTOPERATIVE DIAGNOSIS: Postsurgical incisional neuroma of the scalp, approximately 3 cm, final pathology pending. ANESTHESIA: General. OPERATIVE PROCEDURE: Complete excision of incisional neuroma of the posterior scalp approximately 3 cm. SURGEON: Dr. Cifuentes. COMPLICATIONS: None. ESTIMATED BLOOD LOSS: Less than 20 mL. OPERATIVE PROCEDURE: The patient was placed on the operating table in the semi lateral decubitus position and after uneventful induction and endotracheal intubation, satisfactory general anesthesia was obtained. Next the patient's posterior scalp was shaved, prepped, and draped in usual customary fashion. The site of the neuroma and the previous incision was located. Next, using a Cashually marking pen, an elliptical excision was made to outline the proposed area that was proposed to be excised to include the neuroma and the scar tissue. Next, area was infiltrated with approximately 3 mL of 0.5% Marcaine with epinephrine. After several minutes was allowed to elapse, an incision was made. Incision was made using a #15 scalpel to cut through skin, subcutaneous tissue down to the level of the overlying fascia. Next, the specimen which included the neuroma as well as the incisional scar tissue was carefully excised in a sharp manner and subsequently sent to pathology in formalin for permanent section. Hemostasis was obtained using electrocautery. The wound defect was then closed in 2 layers using 4-0 Vicryl in interrupted buried fashion to approximate the subcutaneous tissues and several reinforcing 4-0 Vicryl interrupted skin sutures were also used. Finally, the skin edges were further approximated using surgical madeline. Estimated blood loss was less than 20 mL. There were no intraoperative complications. At this point, the procedure was terminated. There were no intraoperative complications. The patient tolerated the procedure well and was returned to the recovery room in satisfactory condition. Final pathology is pending. MMODL / IJN: [id number] /
== END | disposition home or self-care (01) ==
LOC: OR 08:27
PROVIDERS: ATTEND Otolaryngology
DX: L90.5 Scar conditions and fibrosis of skin (principal); I10 Essential (primary) hypertension; K21.9 Gastro-esophageal reflux disease without esophagitis; E11.9 Type 2 diabetes mellitus without complications; Z79.4 Long term (current) use of insulin; Q79.6 Ehlers-Danlos syndromes; M79.7 Fibromyalgia; Z79.891 Long term (current) use of opiate analgesic; Z79.899 Other long term (current) drug therapy; Z88.1 Allergy status to other antibiotic agents; Z88.0 Allergy status to penicillin; Z88.8 Allergy status to other drugs, medicaments and biological substances
CPT/HCPCS: 81025; 88305

== ENCOUNTER 2018-07-22 22:04 | Emergency (ER) | payer BC ==
[2018-07-22] MEDS ORDERED: SODIUM CHLORIDE 0.9% 500 ML 500 ML IV STA (22:22)
--- NOTE | 2018-07-22 22:26 | ED ---
General Adult HPI - General Chief complaint: Seizure Stated complaint: poss stroke Time Seen by Provider: 07/22/18 22:17 Source: patient Mode of arrival: wheelchair Limitations: no limitations - History of Present Illness Initial comments: Dictation was produced using [employer] dictation software. please excuse any grammatical, word or spelling errors. Chief Complaint: 48-year-old female presents with strokelike symptoms starting at 9 PM. History of Present Illness: Patient is 48-year-old female she has past medical history of seizures. At approximately 9 PM she was at home when she began having numbness and weakness to her left lower extremity. Significant other was at bedside also noted a left facial droop. Patient has history of seizures she takes antiseizure medications. Patient does not have a history of CVA. Patient is on multiple medications. Patient's neurologist is Dr. Iyer. There is no history of tonic-clonic type of activity prior to the onset of her symptoms. Patient has a history of left upper extremity deficit and is in a sling chronically. Patient also has residual weakness in her right lower extremity. The ROS documented in this emergency department record has been reviewed and confirmed by me. Those systems with pertinent positive or negative responses have been documented in the HPI. All other systems are other negative and/or noncontributory. PHYSICAL EXAM: General Impression: Alert and oriented x3, not in acute distress HEENT: Normocephalic atraumatic, extra-ocular movements intact, pupils equal and reactive to light bilaterally, mucous membranes moist. Cardiovascular: Heart regular rate and rhythm, S1&S2 audible, no murmurs, rubs or gallops Chest: Lungs clear to auscultation bilaterally, no rhonchi, no wheeze, no rales Abdomen: Bowel sounds present, abdomen soft, non-tender, non-distended, no organomegaly Musculoskeletal: Pulses present and equal in all extremities, no peripheral edema Motor: no focal deficits noted Neurological: Left facial droop, no sensation to light touch or pain to the left lower extremity, no movement to gravity with left lower extremity, slightly aphasic, dysarthric but follows commands. Skin: Intact with no visualized rashes ED course: 48-year-old female with past medical history of seizures presents with strokelike symptoms starting an hour 30 minutes prior to arrival. Vital signs upon arrival are within acceptable limits. Code stroke was paged. Patient given NIH of 9 Discussed patient case with Dr. Tapia stroke neurologist who reviewed films. Patient has not had any recent surgery. Patient not on any anticoagulation medications. No history of intracranial bleed. Given clinical presentation she is a candidate for TPA. Risk and benefits were discussed with patient she is told that there is a 3% risk of and 10% risk of intracranial bleed. Patient consented to TPA administration. Laboratory evaluation obtained. CBC unremarkable. Metabolic panel shows hyperglycemia, there is a mild gap acido sis. Discussed patient case with Dr. bowen who is willing to accept the patient for transfer. EKG interpretation: Ventricular rate 106, sinus tachycardia,. Interval 166, care is 82, QTC 494. No LA prolongation, no QTC prolongation, no ST or T-wave changes noted. Overall, this EKG is unremarkable - Related Data Home Medications Medication Instructions Recorded Confirmed Glimepiride [Amaryl] 4 mg PO QAM 02/10/17 07/22/18 Levalbuterol Hfa Inhaler [Xopenex 2 puff INHALATION RT-QID PRN 02/10/17 07/22/18 Hfa Inhaler] Montelukast [Singulair] 10 mg PO HS 02/10/17 07/22/18 Pravastatin Sodium [Pravachol] 40 mg PO HS 02/10/17 07/22/18 Ranitidine HCl [Zantac] 150 mg PO BID 02/10/17 07/22/18 Dapagliflozin Propanediol [Farxiga] 10 mg PO QAM 11/12/17 07/22/18 Gabapentin 1,200 mg PO HS 11/12/17 07/22/18 Gabapentin 600 mg PO QAM 11/12/17 07/22/18 Gabapentin [Neurontin] 300 mg PO DAILY@1400 11/12/17 07/22/18 Insulin NPH Human Isophane 20 unit SQ HS 11/12/17 07/22/18 [humuLIN N] NIFEdipine [Procardia XL] 30 mg PO DAILY 11/16/17 07/22/18 Nystatin/Triamcin 1 applic TOPICAL BID PRN 11/16/17 07/22/18 [Nystatin-Triamcinolone Cream] Pioglitazone HCl 30 mg PO DAILY 11/16/17 07/22/18 metFORMIN HCL [metFORMIN HCL ER] 1,000 mg PO BID 11/16/17 07/22/18 Amitriptyline HCl [Elavil] 25 mg PO HS 07/22/18 07/22/18 Citalopram Hydrobromide [CeleXA] 20 mg PO DAILY 07/22/18 07/22/18 Citalopram Hydrobromide [CeleXA] 40 mg PO DAILY 07/22/18 07/22/18 Doxycycline Monohydrate [Monodox] 100 mg PO BID 07/22/18 07/22/18 Fluticasone Nasal [place] [Flonase 1 - 2 spray EA NOSTRIL BID PRN 07/22/18 07/22/18 Nasal [place]] Glimepiride [Amaryl] 2 mg PO HS 07/22/18 07/22/18 Insulin NPH Human Isophane 40 unit SQ QAM 07/22/18 07/22/18 [humuLIN N] Rizatriptan Benzoate [Rizatriptan] 5 mg PO DAILY PRN 07/22/18 07/22/18 Triamterene-Hctz 37.5-25Mg 0.5 - 1 tab PO DAILY 07/22/18 07/22/18 [Maxzide 37.5-25] lamoTRIgine [LaMICtal Xr] 250 mg PO BID 07/22/18 07/22/18 levETIRAcetam [Keppra] 1,000 mg PO BID 07/22/18 07/22/18 Allergies Allergy/AdvReac Type Severity Reaction Status Date / Time atropine [From ] Allergy Rash/Hives Verified 11/16/17 16:55 erythromycin base Allergy Nausea Verified 11/16/17 16:55 [From E-Mycin] hyoscyamine [From ] Allergy Rash/Hives Verified 11/16/17 16:55 Influenza Virus Vaccines Allergy Unknown Verified 11/16/17 16:55 Penicillins Allergy Rash/Hives Verified 11/16/17 16:55 phenobarbital [From ] Allergy Rash/Hives Verified 11/16/17 16:55 pneumococcal vaccine Allergy Unknown Verified 11/16/17 16:55 scopolamine [From ] Allergy Rash/Hives Verified 11/16/17 16:55 strawberry Allergy Anaphylaxis Verified 11/18/17 13:08 tetanus and diphtheria Allergy Unknown Verified 11/16/17 16:55 toxoids Review of Systems ROS Statement: Those systems with pertinent positive or pertinent negative responses have been documented in the HPI. ROS Other: All systems not noted in ROS Statement are negative. 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 BEING WORKED UP FOR POSSIBLE SEIZURES, LAST ONE WAS 11/08/17, TREMORS LASTING 3-5 MINUTES History of Any Multi-Drug Resistant Organisms: None Reported Past Surgical History: Section, Orthopedic Surgery Additional Past Surgical History / Comment(s): 5 surgeries on left elbow. POST AURICULAR BENIGN MASS x 2 Past Anesthesia/Blood Transfusion Reactions: Postoperative Nausea & Vomiting (PONV) Past Psychological History: No Psychological Hx Reported Smoking Status: Never smoker Past Alcohol Use History: None Reported Past Drug Use History: None Reported - Past Family History Mother Family Medical History: Cancer (small cell ca lung) Sister(s) Family Medical History: Cancer General Exam Limitations: no limitations Course Vital Signs 07/22/18 22:08 Temperature 98.6 F Pulse Rate 105 H Respiratory 20 Rate O2 Sat by Pulse 97 Oximetry Medical Decision Making - Lab Data Result diagrams: 07/22/18 22:24 07/22/18 22:24 Lab Results 07/22/18 07/22/18 07/22/18 Range/Units 22:24 22:24 22:24 WBC 8.1 (3.8-10.6) k/uL RBC 5.35 (3.80-5.40) m/uL Hgb 15.1 (11.4-16.0) gm/dL Hct 44.8 (34.0-46.0) % MCV 83.7 (80.0-100.0) fL MCH 28.1 (25.0-35.0) pg MCHC 33.6 (31.0-37.0) g/dL RDW 14.3 (11.5-15.5) % Plt Count 310 (150-450) k/uL Neutrophils % 52 % Lymphocytes % 32 % Monocytes % 6 % Eosinophils % 6 % Basophils % 1 % Neutrophils # 4.2 (1.3-7.7) k/uL Lymphocytes # 2.6 (1.0-4.8) k/uL Monocytes # 0.5 (0-1.0) k/uL Eosinophils # 0.5 (0-0.7) k/uL Basophils # 0.1 (0-0.2) k/uL PT (9.0-12.0) sec INR (<1.2) APTT (22.0-30.0) sec Sodium 137 (137-145) mmol/L Potassium 4.0 (3.5-5.1) mmol/L Chloride 102 (98-107) mmol/L Carbon Dioxide 22 (22-30) mmol/L Anion Gap 13 mmol/L BUN 15 (7-17) mg/dL Creatinine 0.86 (0.52-1.04) mg/dL Est GFR (CKD-EPI)AfAm >90 (>60 ml/min/1.73 sqM) Est GFR (CKD-EPI)NonAf 80 (>60 ml/min/1.73 sqM) Glucose 401 H (74-99) mg/dL POC Glucose (mg/dL) (75-99) mg/dL POC Glu [employer] ID Calcium 9.8 (8.4-10.2) mg/dL Total Bilirubin 0.3 (0.2-1.3) mg/dL AST 29 (14-36) U/L ALT 30 (9-52) U/L Alkaline Phosphatase 127 H (38-126) U/L Total Creatine Kinase 63 (30-135) U/L Total Protein 7.1 (6.3-8.2) g/dL Albumin 4.5 (3.5-5.0) g/dL 07/22/18 07/22/18 Range/Units 22:24 22:26 WBC (3.8-10.6) k/uL RBC (3.80-5.40) m/uL Hgb (11.4-16.0) gm/dL Hct (34.0-46.0) % MCV (80.0-100.0) fL MCH (25.0-35.0) pg MCHC (31.0-37.0) g/dL RDW (11.5-15.5) % Plt Count (150-450) k/uL Neutrophils % % Lymphocytes % % Monocytes % % Eosinophils % % Basophils % % Neutrophils # (1.3-7.7) k/uL Lymphocytes # (1.0-4.8) k/uL Monocytes # (0-1.0) k/uL Eosinophils # (0-0.7) k/uL Basophils # (0-0.2) k/uL PT 10.1 (9.0-12.0) sec INR 0.9 (<1.2) APTT 24.0 (22.0-30.0) sec Sodium (137-145) mmol/L Potassium (3.5-5.1) mmol/L Chloride (98-107) mmol/L Carbon Dioxide (22-30) mmol/L Anion Gap mmol/L BUN (7-17) mg/dL Creatinine (0.52-1.04) mg/dL Est GFR (CKD-EPI)AfAm (>60 ml/min/1.73 sqM) Est GFR (CKD-EPI)NonAf (>60 ml/min/1.73 sqM) Glucose (74-99) mg/dL POC Glucose (mg/dL) 341 H (75-99) mg/dL POC Glu [employer] Truck Driver ID Ana María Landin Calcium (8.4-10.2) mg/dL Total Bilirubin (0.2-1.3) mg/dL AST (14-36) U/L ALT (9-52) U/L Alkaline Phosphatase (38-126) U/L Total Creatine Kinase (30-135) U/L Total Protein (6.3-8.2) g/dL Albumin (3.5-5.0) g/dL Disposition Clinical Impression: Cerebrovascular accident Disposition: OTHER INSTITUTION NOT DEFINED Condition: Critical Referrals: Mario Emanuel MD [Primary Care Provider] - 1-2 days Time of Disposition: 23:07 - Out of Hospital Transfer - Req. Specs Out of Hospital Transfer - Requested Specifics: Other [facility] ([facility])
[2018-07-22 22:27] LABS: Glucose,Whole Blood 341 mg/dL (75-99)
[2018-07-22 22:40] LABS: Basophils # (A) 0.1 k/uL (0-0.2); Basophils % (A) 1 %; Eosinophils # (A) 0.5 k/uL (0-0.7); Eosinophils % (A) 6 %; HCT 44.8 % (34.0-46.0); HGB 15.1 gm/dL (11.4-16.0); Lymphocytes # (A) 2.6 k/uL (1.0-4.8); Lymphocytes % (A) 32 %; MCH 28.1 pg (25.0-35.0); MCHC 33.6 g/dL (31.0-37.0); MCV 83.7 fL (80.0-100.0); Monocytes # (A) 0.5 k/uL (0-1.0); Monocytes % (A) 6 %; Neutrophils # (A) 4.2 k/uL (1.3-7.7); Neutrophils % (A) 52 %; Platelet Count 310 k/uL (150-450); RBC 5.35 m/uL (3.80-5.40); RDW 14.3 % (11.5-15.5); WBC 8.1 k/uL (3.8-10.6)
[2018-07-22 22:51] LABS: ALT 30 U/L (9-52); AST 29 U/L (14-36); Albumin 4.5 g/dL (3.5-5.0); Alkaline Phosphatase 127 U/L (38-126); Anion Gap 13 mmol/L; Blood Urea Nitrogen 15 mg/dL (7-17); Calcium 9.8 mg/dL (8.4-10.2); Carbon Dioxide 22 mmol/L (22-30); Chloride 102 mmol/L (98-107); Glucose 401 mg/dL (74-99); Sodium 137 mmol/L (137-145); Total Bilirubin 0.3 mg/dL (0.2-1.3); Total Protein 7.1 g/dL (6.3-8.2)
--- NOTE | 2018-07-22 22:52 | CT ---
EXAM: CT Head Without Intravenous Contrast CLINICAL HISTORY: ITS.REASON CT Reason: Neuro Deficits TECHNIQUE: Axial computed tomography images of the head/brain without intravenous contrast. CTDI is 45.27 mGy and DLP is 975.6 mGy-cm. This CT exam was performed using one or more of the following dose reduction techniques: automated exposure control, adjustment of the mA and/or kV according to patient size, and/or use of iterative reconstruction technique. COMPARISON: CT head on 11/16/2017 FINDINGS: Brain: No acute infarct or hemorrhage identified. No extra-axial fluid collection. No mass effect or midline shift. Stable calcification along the inner table of the left frontal bone could represent a calcified meningioma. Ventricles and sulci: Stable mild prominence of the ventricles and sulci is likely secondary to cerebral volume loss. Skull: Normal. No bony lesion or fracture. Subcutaneous tissues: Normal. Sinuses: Normal. No air-fluid levels or mucosal thickening. Orbits: Grossly unremarkable. Other: Atherosclerotic calcifications in the intracranial vasculature. IMPRESSION: No acute intracranial abnormality identified.
[2018-07-22] MEDS ORDERED: tPA (Alteplase) PER PHARMACY 1 EACH MISC MISCELLANE PRN (22:56)
[2018-07-22] MEDS ORDERED: ALTEPLASE BOLUS 8 MG in EMPTY SYRINGE 1 SYR IV ONE (23:00)
[2018-07-22] MEDS ORDERED: ALTEPLASE 73 MG in EMPTY BAG 1 BAG IV ONE (23:00)
[2018-07-22 23:01] LABS: INR 0.9 (<1.2); Prothrombin Time 10.1 sec (9.0-12.0)
[2018-07-22 23:05] LABS: Creatine Kinase 63 U/L (30-135)
--- NOTE | 2018-07-22 23:16 | XR ---
EXAM: XR Chest, 1 View CLINICAL HISTORY: ITS.REASON XR Reason: altered mental status TECHNIQUE: Frontal view of the chest. COMPARISON: None FINDINGS: Hardware: None. Lungs/pleura: Normal. No focal consolidation. No pleural effusion or pneumothorax. Heart/mediastinum: Normal. No cardiomegaly. Soft tissues: Unremarkable. Bones: No acute fracture. Degenerative changes of the acromioclavicular joints. Upper abdomen: Normal. IMPRESSION: No acute disease identified.
[2018-07-22 23:17] LABS: Creatine Kinase MB 0.3 ng/mL (0.0-2.4); Troponin I <0.012 ng/mL (0.000-0.034)
--- NOTE | 2018-07-22 23:41 | CT ---
EXAM: CT Angiography Head With Intravenous Contrast CLINICAL HISTORY: ITS.REASON CT Reason: Neuro Deficits TECHNIQUE: Axial computed tomographic angiography images of the head with intravenous contrast using CT angiography protocol. CTDI is 12.9 mGy and DLP is 421.9 mGy-cm. This CT exam was performed using one or more of the following dose reduction techniques: automated exposure control, adjustment of the mA and/or kV according to patient size, and/or use of iterative reconstruction technique. 3D and MIP reconstructed images were created and reviewed. COMPARISON: None FINDINGS: Right internal carotid artery: No acute findings. Intracranial segment is patent with no significant stenosis. No aneurysm. Right anterior cerebral artery: Unremarkable. No occlusion or significant stenosis. No aneurysm. Right middle cerebral artery: Unremarkable. No occlusion or significant stenosis. No aneurysm. Right posterior cerebral artery: Unremarkable. No occlusion or significant stenosis. No aneurysm. Right vertebral artery: Unremarkable as visualized. Left internal carotid artery: No acute findings. Intracranial segment is patent with no significant stenosis. No aneurysm. Left anterior cerebral artery: Unremarkable. No occlusion or significant stenosis. No aneurysm. Left middle cerebral artery: Unremarkable. No occlusion or significant stenosis. No aneurysm. Left posterior cerebral artery: Unremarkable. No occlusion or significant stenosis. No aneurysm. Left vertebral artery: Unremarkable as visualized. Basilar artery: Unremarkable. No occlusion or significant stenosis. No aneurysm. IMPRESSION: No significant stenosis, occlusion, or aneurysm. EXAM: CT Angiography Neck With Intravenous Contrast CLINICAL HISTORY: ITS.REASON CT Reason: Neuro Deficits TECHNIQUE: Axial computed tomographic angiography images of the neck with intravenous contrast using CT angiography protocol. CTDI is 12.9 mGy and DLP is 421.9 mGy-cm. This CT exam was performed using one or more of the following dose reduction techniques: automated exposure control, adjustment of the mA and/or kV according to patient size, and/or use of iterative reconstruction technique. 3D and MIP reconstructed images were created and reviewed. COMPARISON: None FINDINGS: VASCULATURE: Right common carotid artery: Unremarkable. No significant stenosis. No dissection or occlusion. Right internal carotid artery: Medially coursing right ICA. Extracranial segment is patent with no significant stenosis. No dissection or occlusion. Right external carotid artery: Unremarkable. No occlusion. Right vertebral artery: Unremarkable. No significant stenosis. No dissection or occlusion. Left common carotid artery: Unremarkable. No significant stenosis. No dissection or occlusion. Left internal carotid artery: Medially coursing left ICA. Extracranial segment is patent with no significant stenosis. No dissection or occlusion. Left external carotid artery: Unremarkable. No occlusion. Left vertebral artery: Unremarkable. No significant stenosis. No dissection or occlusion. NECK: Bones/joints: No acute fracture. No dislocation. Soft tissues: Unremarkable as visualized. No mass. CAROTID STENOSIS REFERENCE USING NASCET CRITERIA: % ICA stenosis = (1 - narrowest ICA diameter/diameter of distal cervical ICA) x 100. Mild - <50% stenosis. Moderate - 50-69% stenosis. Severe - 70-94% stenosis. Near occlusion - 95-99% stenosis. Occluded - 100% stenosis. IMPRESSION: No significant stenosis, occlusion, or dissection.
[2018-07-22 23:48] VITALS: PULSE 99; RESP 25
[2018-07-23 01:01] VITALS: BP 148/95
[2018-07-23 04:54] VITALS: TEMP 98
== END 2018-07-22 23:40 | disposition other institution (70) ==
LOC: EC 22:04
DX: I63.9 Cerebral infarction, unspecified (principal); R29.709 NIHSS score 9; R56.9 Unspecified convulsions; R00.0 Tachycardia, unspecified; J45.909 Unspecified asthma, uncomplicated; E11.65 Type 2 diabetes mellitus with hyperglycemia; M79.7 Fibromyalgia; E78.5 Hyperlipidemia, unspecified; I10 Essential (primary) hypertension; M19.90 Unspecified osteoarthritis, unspecified site; Z98.890 Other specified postprocedural states; Z79.4 Long term (current) use of insulin; Z79.899 Other long term (current) drug therapy; Z88.0 Allergy status to penicillin; Z88.1 Allergy status to other antibiotic agents; Z88.7 Allergy status to serum and vaccine; Z88.8 Allergy status to other drugs, medicaments and biological substances; Z91.018 Allergy to other foods
CPT/HCPCS: 36415; 80053; 82550; 82553; 84484; 85025; 85610; 85730; 71045; 70496; 70450; 70498; 99285; 37195; 96360; J2997; Q9967; 80177; 93005

== ENCOUNTER 2018-08-05 11:39 | Emergency (ER) | payer BC ==
[2018-08-05 11:44] VITALS: RESP 18; TEMP 98.4
[2018-08-05] MEDS ORDERED: SODIUM CHLORIDE 0.9% 1,000 ML IV STA (14:41)
[2018-08-05] MEDS ORDERED: KETOROLAC 30 MG/ML 1 ML VIAL IVP STA (14:41)
[2018-08-05] MEDS ORDERED: ONDANSETRON 4 MG/2 ML VIAL IVP STA (14:41)
[2018-08-05] MEDS ORDERED: diphenhydrAMINE 50 MG/ML 1 ML VIAL IVP STA (14:42)
--- NOTE | 2018-08-05 14:46 | ED ---
General Adult HPI - General Chief complaint: Headache Stated complaint: Facial numbness Time Seen by Provider: 08/05/18 14:15 Source: patient, family Mode of arrival: wheelchair Limitations: no limitations - History of Present Illness Initial comments: Dictation was produced using [employer] dictation software. please excuse any grammatical, word or spelling errors. Chief Complaint: 48-year-old female presents with headache 2 days and URI type symptoms. History of Present Illness: It is a 48-year-old female. She has been having 2 days of URI-type symptoms, vague abdominal pain diarrhea and sore throat for the last 2 days. Patient was recently evaluated here in our hospital for strokelike symptoms. Patient was seen and evaluated by myself. She was given TPA 2 weeks ago and sent to [facility] for further intervention. Patient states that she did well was in ICU. Initial MRI did show some signs of stroke. They did do a repeat MRI with resolution of ischemic areas. She was discharged in stable condition. Patient states that her last today she's been having headache and URI type symptoms. She has been waking up with constitutional symptoms, nonproductive cough she's also been complaining of myalgias. Denies any overt sick contacts. She states that her headache is all cranial. Denies his being t he worse headache of her life. Denies thunderclap headache. Patient states that her stroke symptoms of 2 weeks ago improved. She is however left with mild left facial droop. Patient states she has intermittent pain sensation in her throat is worse with swallowing. The ROS documented in this emergency department record has been reviewed and confirmed by me. Those systems with pertinent positive or negative responses have been documented in the HPI. All other systems are other negative and/or noncontributory. PHYSICAL EXAM: General Impression: Alert and oriented x3, not in acute distress HEENT: Normocephalic atraumatic, extra-ocular movements intact, pupils equal and reactive to light bilaterally, mucous membranes moist, no erythema or exudates over the tonsils or posterior oropharynx Cardiovascular: Heart regular rate and rhythm, S1&S2 audible, no murmurs, rubs or gallops Chest: Lungs clear to auscultation bilaterally, no rhonchi, no wheeze, no rales Abdomen: Bowel sounds present, abdomen soft, non-tender, non-distended, no organomegaly Musculoskeletal: Pulses present and equal in all extremities, no peripheral edema Motor: no focal deficits noted Neurological: Mild left facial droop, left upper extremity chronic contraction, chronic left lower extremity weakness. Skin: Intact with no visualized rashes Psych: Normal affect and mood ED course: 48-year-old male presents with headache, URI type symptoms. Vital signs upon arrival shows heart rate of 105, rest of vital signs within acceptable limits.Lab data evaluation obtained. CBC, metabolic panel, rapid strep test negative. Chest x-ray is unremarkable. Patient given headache cocktail. Patient observed in emergency department for several hours. Patient reevaluated found with stable medical condition. Patient feels well. This point no suspicion of serious intracranial pathology causing headache. This is more or less likely secondary to URI type symptoms. Patient clear for discharge. She is told to take [id number] analgesics for headache. Neurologist and PCP upon discharge. Return parameters discussed. - Related Data Home Medications Medication Instructions Recorded Confirmed Glimepiride [Amaryl] 4 mg PO QAM 02/10/17 08/05/18 Levalbuterol Hfa Inhaler [Xopenex 2 puff INHALATION RT-QID PRN 02/10/17 08/05/18 Hfa Inhaler] Montelukast [Singulair] 10 mg PO HS 02/10/17 08/05/18 Pravastatin Sodium [Pravachol] 40 mg PO HS 02/10/17 08/05/18 Ranitidine HCl [Zantac] 150 mg PO BID 02/10/17 08/05/18 Dapagliflozin Propanediol [Farxiga] 10 mg PO QAM 11/12/17 08/05/18 Gabapentin 1,200 mg PO HS 11/12/17 08/05/18 Gabapentin 600 mg PO QAM 11/12/17 08/05/18 Gabapentin [Neurontin] 300 mg PO DAILY@1400 11/12/17 08/05/18 Insulin NPH Human Isophane 20 unit SQ HS 11/12/17 08/05/18 [humuLIN N] NIFEdipine [Procardia XL] 30 mg PO DAILY 11/16/17 08/05/18 metFORMIN HCL [metFORMIN HCL ER] 1,000 mg PO BID 11/16/17 08/05/18 Amitriptyline HCl [Elavil] 25 mg PO HS 07/22/18 08/05/18 Citalopram Hydrobromide [CeleXA] 40 mg PO DAILY 07/22/18 08/05/18 Fluticasone Nasal [place] [Flonase 1 - 2 spray EA NOSTRIL BID PRN 07/22/18 08/05/18 Nasal [place]] Glimepiride [Amaryl] 2 mg PO HS 07/22/18 08/05/18 Insulin NPH Human Isophane 40 unit SQ QAM 07/22/18 08/05/18 [humuLIN N] Rizatriptan Benzoate [Rizatriptan] 5 mg PO DAILY PRN 07/22/18 08/05/18 Triamterene-Hctz 37.5-25Mg 0.5 - 1 tab PO DAILY 07/22/18 08/05/18 [Maxzide 37.5-25] lamoTRIgine [LaMICtal Xr] 250 mg PO BID 07/22/18 08/05/18 levETIRAcetam [Keppra] 1,000 mg PO BID 07/22/18 08/05/18 Acetaminophen-Codeine 300-30mg 1 - 2 tab PO Q4-6H PRN 08/05/18 08/05/18 [Tylenol w/codeine #3] Aspirin EC [Ecotrin Low Dose] 81 mg PO DAILY 08/05/18 08/05/18 Atorvastatin [Lipitor] 80 mg PO HS 08/05/18 08/05/18 Allergies Allergy/AdvReac Type Severity Reaction Status Date / Time atropine [From ] Allergy Rash/Hives Verified 08/05/18 14:30 erythromycin base Allergy Nausea Verified 08/05/18 14:30 [From E-Mycin] hyoscyamine [From ] Allergy Rash/Hives Verified 08/05/18 14:30 Influenza Virus Vaccines Allergy Unknown Verified 08/05/18 14:30 Penicillins Allergy Rash/Hives Verified 08/05/18 14:30 phenobarbital [From ] Allergy Rash/Hives Verified 08/05/18 14:30 pneumococcal vaccine Allergy Unknown Verified 08/05/18 14:30 scopolamine [From ] Allergy Rash/Hives Verified 08/05/18 14:30 strawberry Allergy Anaphylaxis Verified 08/05/18 14:30 tetanus and diphtheria Allergy Unknown Verified 08/05/18 14:30 toxoids Review of Systems ROS Statement: Those systems with pertinent positive or pertinent negative responses have been documented in the HPI. ROS Other: All systems not noted in ROS Statement are negative. 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 BEING WORKED UP FOR POSSIBLE SEIZURES, LAST ONE WAS 11/08/17, TREMORS LASTING 3-5 MINUTES History of Any Multi-Drug Resistant Organisms: None Reported Past Surgical History: Section, Orthopedic Surgery Additional Past Surgical History / Comment(s): 5 surgeries on left elbow. POST AURICULAR BENIGN MASS x 2 Past Anesthesia/Blood Transfusion Reactions: Postoperative Nausea & Vomiting (PONV) Past Psychological History: No Psychological Hx Reported Smoking Status: Never smoker Past Alcohol Use History: None Reported Past Drug Use History: None Reported - Past Family History Mother Family Medical History: Cancer (small cell ca lung) Sister(s) Family Medical History: Cancer General Exam Limitations: no limitations Course Vital Signs 08/05/18 11:40 Temperature 98.4 F Pulse Rate 105 H Respiratory 18 Rate Blood Pressure 124/77 O2 Sat by Pulse 96 Oximetry Medical Decision Making - Lab Data Result diagrams: 08/05/18 15:07 08/05/18 15:07 Lab Results 08/05/18 08/05/18 08/05/18 Range/Units 15:07 15:07 15:07 WBC 7.7 (3.8-10.6) k/uL RBC 5.66 H (3.80-5.40) m/uL Hgb 15.5 (11.4-16.0) gm/dL Hct 47.5 H (34.0-46.0) % MCV 84.0 (80.0-100.0) fL MCH 27.4 (25.0-35.0) pg MCHC 32.7 (31.0-37.0) g/dL RDW 13.4 (11.5-15.5) % Plt Count 320 (150-450) k/uL Neutrophils % 53 % Lymphocytes % 32 % Monocytes % 6 % Eosinophils % 6 % Basophils % 1 % Neutrophils # 4.1 (1.3-7.7) k/uL Lymphocytes # 2.5 (1.0-4.8) k/uL Monocytes # 0.5 (0-1.0) k/uL Eosinophils # 0.5 (0-0.7) k/uL Basophils # 0.1 (0-0.2) k/uL Sodium 141 (137-145) mmol/L Potassium 4.3 (3.5-5.1) mmol/L Chloride 105 (98-107) mmol/L Carbon Dioxide 24 (22-30) mmol/L Anion Gap 12 mmol/L BUN 13 (7-17) mg/dL Creatinine 0.71 (0.52-1.04) mg/dL Est GFR (CKD-EPI)AfAm >90 (>60 ml/min/1.73 sqM) Est GFR (CKD-EPI)NonAf >90 (>60 ml/min/1.73 sqM) Glucose 178 H (74-99) mg/dL Calcium 10.1 (8.4-10.2) mg/dL Group A Strep Rapid Negative (Negative) Disposition Clinical Impression: Acute headache Disposition: HOME SELF-CARE Condition: Good Instructions (If sedation given, give patient instructions): Acute Headache (ED) Is patient prescribed a controlled substance at d/c from ED?: No Referrals: Mario Emanuel MD [Primary Care Provider] - 1-2 days Kelly Iyer MD [Medical Doctor] - 1-2 days Time of Disposition: 16:49
--- NOTE | 2018-08-05 15:50 | XR ---
EXAMINATION TYPE: XR chest 2V DATE OF EXAM: 08/05/2018 COMPARISON: Chest x-ray July 22, 2018. HISTORY: Chest pain. TECHNIQUE: Frontal and lateral views of the chest are obtained. FINDINGS: Low lung volumes are present. There is no focal air space opacity, pleural effusion, or pne umothorax seen. The cardiac silhouette size is within normal limits. The osseous structures are in tact. IMPRESSION: No acute cardiopulmonary process. No significant change from prior.
[2018-08-05 15:56] LABS: Basophils # (A) 0.1 k/uL (0-0.2); Basophils % (A) 1 %; Eosinophils # (A) 0.5 k/uL (0-0.7); Eosinophils % (A) 6 %; HCT 47.5 % (34.0-46.0); HGB 15.5 gm/dL (11.4-16.0); Lymphocytes # (A) 2.5 k/uL (1.0-4.8); Lymphocytes % (A) 32 %; MCH 27.4 pg (25.0-35.0); MCHC 32.7 g/dL (31.0-37.0); Mean Platelet Volume 7.6; Monocytes # (A) 0.5 k/uL (0-1.0); Monocytes % (A) 6 %; Neutrophils # (A) 4.1 k/uL (1.3-7.7); Neutrophils % (A) 53 %; Platelet Count 320 k/uL (150-450); RBC 5.66 m/uL (3.80-5.40); RDW 13.4 % (11.5-15.5); WBC 7.7 k/uL (3.8-10.6)
[2018-08-05 16:06] LABS: African American GFR (CKD) >90 (>60 ml/min/1.73 sqM); Anion Gap 12 mmol/L; Blood Urea Nitrogen 13 mg/dL (7-17); Calcium 10.1 mg/dL (8.4-10.2); Carbon Dioxide 24 mmol/L (22-30); Chloride 105 mmol/L (98-107); Glucose 178 mg/dL (74-99); Potassium 4.3 mmol/L (3.5-5.1); Sodium 141 mmol/L (137-145)
[2018-08-05 17:01] VITALS: BP 134/86; PULSE 87
== END 2018-08-05 17:01 | disposition home or self-care (01) ==
LOC: EC 11:39
DX: R51 Headache (principal); R20.0 Anesthesia of skin; R05 Cough; M79.10 Myalgia, unspecified site; J45.909 Unspecified asthma, uncomplicated; E11.9 Type 2 diabetes mellitus without complications; E78.5 Hyperlipidemia, unspecified; I10 Essential (primary) hypertension; Z86.73 Personal history of transient ischemic attack (TIA), and cerebral infarction without residual deficits; Z79.4 Long term (current) use of insulin; Z79.82 Long term (current) use of aspirin; Z79.899 Other long term (current) drug therapy; Z88.8 Allergy status to other drugs, medicaments and biological substances; Z88.1 Allergy status to other antibiotic agents; Z88.7 Allergy status to serum and vaccine; Z88.0 Allergy status to penicillin; Z91.018 Allergy to other foods
CPT/HCPCS: 99284; 96374; 96375 ×2; 96361; 36415; 80048; 85025; 87081; 87430; 71046; J1200; J2405; J1885

== ENCOUNTER → 2019-08-11 | Outpatient (CLI) | payer BC ==
[2019-08-11 17:44] LABS: African American GFR (CKD) 75.5 (60.0-200.0); Calcium 10.2 mg/dL (8.7-10.3); Chol/HDL Ratio 2.79; LDL Cholesterol,Calculated 57.8 mg/dL (0.0-131.0); Non-African American GFR(CKD) 65.2 (60.0-200.0); Potassium 4.5 mmol/L (3.5-5.5); VLDL Calculation 35.2 mg/dL (5.00-40.00)
[2019-08-11 19:21] LABS: Hemoglobin A1C 4.7 % (4.0-6.0)
[2019-08-11 19:40] LABS: Urine Creatinine 205.3 mg/dL
== END | disposition home or self-care (01) ==
LOC: LABWHC1 09:34
PROVIDERS: ATTEND Internal Medicine
DX: E11.65 Type 2 diabetes mellitus with hyperglycemia (principal)
CPT/HCPCS: 36415; 80048; 80061; 82043; 82570; 83036

== ENCOUNTER 2020-07-18 10:27 | Day surgery (SDC) | payer BC ==
[2020-07-17 10:08] VITALS: BMI 28.3
[~2020-07-18 10:27] MED LIST changes: -ACETAMINOPHEN IV (For NPO) 1,000 MG in EMPTY BAG 1 BAG IVPB ONE; -BACITRACIN 500 UNIT/GM OINT 28.4 GM TUBE TOPICAL ONE; -BUPIVACAIN-EPI 0.5%-1:200,000 30 ML VIAL SQ ONE; -DEXAMETHASONE SOD PHOSPHATE 10 MG/ML 1 ML VIAL IV ONE; -HYDROmorphone 0.5 MG/0.5 ML SYRINGE IVP PRN; +LIDOCAINE 1% (10MG/ML) FOR IV START INTRADERMA PRN; -LIDOCAINE 1% 20 ML VIAL (10MG/ML) FOR IV START INTRADERMA PRN; -LIDOCAINE 1% INJ 10MG/ML (20 ML MDV) ONE; -MIDAZOLAM 2 MG/2 ML VIAL IVP ONE; -MIDAZOLAM 2 MG/2 ML VIAL ONE; +MOXIFLOXACIN HCL 0.5% DROPS 3 ML BTL OP PRN; -ONDANSETRON 4 MG/2 ML VIAL IVP ONE; -PHENYLEPHRINE-0.9% NACL SYG 1 MG/10 ML SYRINGE ONE; -PROPOFOL 10 MG/ML 20 ML VIAL IV ONE; -Pre Op ABX Message 1 EACH MISC MISCELLANE ONE; -SUCCINYLCHOLINE CHLORIDE 100 MG/5 ML SYR IV ONE; +TETRACAINE 0.5% OPHTH (PF) DROPS 4 ML BTL OP PRN; +TIMOLOL 0.5% OPHTH DROPS 5 ML BTL OP PRN; -fentaNYL (PF) 50 MCG/ML 2 ML AMP ONE
[2020-07-18] MEDS: CYCLOPENTOLATE 1% OPHTH SOLN 2 ML BTL OP PRN ×3 (11:14→11:26)
[2020-07-18] MEDS: PHENYLEPHRINE 2.5% OPHTH DRP 2ML OP PRN ×3 (11:17→11:29)
[2020-07-18 11:24] LABS: Glucose,Whole Blood 91 mg/dL (75-99)
[2020-07-18] MEDS ORDERED: BALANCED SALT IRRIG SOLN COMB2 15 ML IRRIG.SOLN IRRIGATION ONE (12:13)
[2020-07-18] MEDS ORDERED: HYALURONATE SODIUM INTRAOCULAR 1 EACH SYRINGE (12MG/ML) INTRAOCULA ONE (12:13)
[2020-07-18] MEDS ORDERED: LIDOCAINE 1% (PF) 10MG/ML VIAL MISCELLANE ONE (12:13)
[2020-07-18] MEDS ORDERED: EPINEPHrine (PF) 0.3 ML in BALANCED SALT IRRIG SOLN COMB2 500 ML IRRIGATION ONE (12:14)
--- NOTE | 2020-07-18 12:45 | P.OP ---
Date of Procedure: 07/18/20 Preoperative Diagnosis: NS & CS & PSC Postoperative Diagnosis: same Procedure(s) Performed: PIOL, OS Implants: MX60e 24.00 & 13 mm CTR Anesthesia: MAC Surgeon: Ramesh Acevedo Pathology: none sent Condition: stable Disposition: same day Indications for Procedure: blurry vision Operative Findings: no complications
[2020-07-18 13:01] VITALS: TEMP 98.5
[2020-07-18] MEDS ORDERED: LORazepam 2 MG/ML INJ IV ONE (13:15)
[2020-07-18] MEDS ORDERED: HYDROmorphone 0.5 MG/0.5 ML SYRINGE IVP ONE (13:20)
[2020-07-18] MEDS ORDERED: SODIUM CHLORIDE 0.9% 1,000 ML IV ONE (13:36)
[2020-07-18 13:47] LABS: Glucose,Whole Blood 89 mg/dL (75-99)
[2020-07-18] MEDS ORDERED: levETIRAcetam IV 1,500 MG in SALINE 1 100ML.BAG IVPB STA (14:35)
[2020-07-18 15:58] LABS: Glucose,Whole Blood 76 mg/dL (75-99)
[2020-07-18 16:40] VITALS: RESP 16
[2020-07-18 17:26] VITALS: BP 113/77; PULSE 89
--- NOTE | 2020-07-19 10:03 | OP ---
OPERATIVE REPORT DATE OF SURGERY: July 18, 2020. PROCEDURES: Phacoemulsification of cataract and intraocular lens implant of the left eye. PREOPERATIVE DIAGNOSES: Nuclear sclerosis, cortical sclerosis and posterior subcapsular cataract and Ehler- Danlos syndrome. POSTOPERATIVE DIAGNOSES: Nuclear sclerosis, cortical sclerosis and posterior subcapsular cataract and Ehler- Danlos syndrome with tonic-clonic seizures. SURGEON: Dr. Ramesh Acevedo. ANESTHESIA: Topical. ESTIMATED BLOOD LOSS: None. SPECIMEN TAKEN: None. NARRATIVE: After obtaining the appropriate consent, the patient was brought to the operating room. There she was placed under cardiac monitoring, prepped and draped in the usual sterile manner. She was approached from her left temporal side and at the 5 o'clock position an MVR blade was used to create a paracentesis port. Through this opening 1% Xylocaine MPF 50:50 mix with balanced salt solution was injected into the anterior chamber. This was followed by stabilization of the anterior chamber with Amvisc. At the 3 o'clock position, a 2.5 mm keratome was used to create a self-sealing corneal flap incision. Through this opening, a cystotome was introduced to begin a continuous tear capsulorrhexis which was then completed using the Utrata forceps. Hydrodissection and hydrodelineation of the lens was accomplished with balanced salt solution. Phacoemulsification of the lens utilizing phaco chop was accomplished in 4.63 seconds at 11% power. Additional lidocaine MPF was instilled into the anterior chamber. This was followed by removal of the remaining cortex under irrigation and aspiration as well as careful polishing of the posterior capsule in the capsule vacuum mode. Amvisc was then used to stabilize the capsular bag and a 13 mm capsular tension ring identified as [id number] was inserted in the capsular bag without difficulty. This was followed by placement of a posterior chamber intraocular lens made by [employer], model #MX60E 24.0 diopter. The remaining viscoelastic from in and around the intraocular lens was removed under irrigation and aspiration as well as the eye was then brought to normal intraocular pressure through the paracentesis port with balanced salt solution. The incisions were confirmed watertight. She then received 2 drops of 0.5% timolol followed by 2 drops of moxifloxacin and was lightly patched and shielded in the usual manner. The patient tolerated the procedure well and while awaiting a room in recovery, she began to demonstrate mild tonic clonic activity with a loss of consciousness for approximately 3-4 minutes. The tonic clonic activity was solely noted in the head as well as on the right upper extremity. She was given some additional Versed which brought an immediate end to the seizures and she was brought to phase 1 for further observation, where she subsequently had one more seizure episode at which time Neurology was consulted and the patient was bolused with 1500 mg of Keppra. Her level of consciousness improved with no further seizure activity and under instruction of Neurology and discussion with the son, the patient was released to home in otherwise good condition with followup to be scheduled with Dr. Iyer in 2 days time. MMODL / IJN: [id number] /
== END 2020-07-18 17:28 | disposition home or self-care (01) ==
LOC: OR 10:27
PROVIDERS: ATTEND Ophthalmology
DX: E11.36 Type 2 diabetes mellitus with diabetic cataract (principal); H25.13 Age-related nuclear cataract, bilateral; H52.223 Regular astigmatism, bilateral; H00.023 Hordeolum internum right eye, unspecified eyelid; H00.026 Hordeolum internum left eye, unspecified eyelid; Q79.60 Ehlers-Danlos syndrome, unspecified; H04.129 Dry eye syndrome of unspecified lacrimal gland; G43.909 Migraine, unspecified, not intractable, without status migrainosus; R41.3 Other amnesia; M79.7 Fibromyalgia; I11.9 Hypertensive heart disease without heart failure; E11.40 Type 2 diabetes mellitus with diabetic neuropathy, unspecified; Z90.89 Acquired absence of other organs; Z98.890 Other specified postprocedural states; Z86.73 Personal history of transient ischemic attack (TIA), and cerebral infarction without residual deficits; J45.909 Unspecified asthma, uncomplicated; M26.609 Unspecified temporomandibular joint disorder, unspecified side; Z98.891 History of uterine scar from previous surgery; Z82.61 Family history of arthritis; Z83.3 Family history of diabetes mellitus; Z80.3 Family history of malignant neoplasm of breast; Z80.1 Family history of malignant neoplasm of trachea, bronchus and lung; Z82.3 Family history of stroke; Z82.49 Family history of ischemic heart disease and other diseases of the circulatory system; Z83.518 Family history of other specified eye disorder; Z79.4 Long term (current) use of insulin; Z79.899 Other long term (current) drug therapy; Z88.1 Allergy status to other antibiotic agents; Z88.0 Allergy status to penicillin; Z88.8 Allergy status to other drugs, medicaments and biological substances
CPT/HCPCS: 66984; C1780; J2060; J0171; J2001; J1170